=== PATIENT | male | born 1980 | race Caucasian/White ===

== ENCOUNTER 2017-12-19 15:52 | Inpatient (IN) | payer OTHER ==
[~2017-12-19] VITALS: Ht 165.1 cm; Wt 78.0 kg
[2017-12-19] MEDS ORDERED: HTN (16:15)
[2017-12-19] MEDS ORDERED: GERD (16:16)
[2017-12-19 16:21] LABS: ABSOLUTE BASOPHILS 0.1 thou/uL (0.0-0.2); ABSOLUTE EOSINOPHILS 0.1 thou/uL (0.0-0.7); ABSOLUTE LYMPHOCYTES 2.5 thou/uL (0.8-5.3); ABSOLUTE MONOCYTES 0.5 thou/uL (0.0-1.2); ABSOLUTE NEUTROPHILS 5.9 thou/uL (1.6-8.1); BASOPHILS 0.7 %; EOSINOPHILS 1.4 %; HEMATOCRIT 49.8 % (42.0-52.0); HEMOGLOBIN 17.2 gm/dL (14.0-18.0); LYMPHOCYTES 27.4 %; MCH 36.6 pg (26.0-34.0); MCHC 34.6 g/dL (28.0-37.0); MCV 105.8 fL (80.0-100.0); MPV 8.1 fl. (7.2-11.1); NUCLEATED RBCS 0 /100WBC; PLATELET COUNT* 262 thou/uL (150-400); POLYS 64.5 %; RBC 4.71 mil/uL (4.50-6.00); RDW-CV 13.4 % (10.5-14.5); WBC 9.1 thou/uL (4.0-11.0)
[2017-12-19 16:32] LABS: CALCIUM 8.3 mg/dL (8.5-10.1); CREATININE 1.1 mg/dL (0.6-1.3)
[2017-12-19 16:37] LABS: ALBUMIN 3.7 g/dL (3.4-5.0); TOTAL BILIRUBIN 0.5 mg/dL (<0.1-1.0); TOTAL PROTEIN 7.5 g/dL (6.4-8.2)
[2017-12-19] MEDS ORDERED: DEPO-TESTO200 MG/1 M IM (16:38)
[2017-12-19 16:54] LABS: URINE BILIRUBIN NEGATIVE (Negative); URINE BLOOD NEGATIVE (Negative); URINE CLARITY CLEAR; URINE COLOR YELLOW; URINE GLUCOSE-RANDOM NEGATIVE (Negative); URINE KETONES NEGATIVE (Negative); URINE LEUKOCYTES 1+ (Negative); URINE NITRITE NEGATIVE (Negative); URINE PROTEIN 1+ (Negative); URINE UROBILINOGEN 0.2 E.U./dl (0.2-1.0)
[2017-12-19 17:03] LABS: SQUAMOUS 0-3 Few /LPF (0-3)
[2017-12-19 17:04] LABS: BACTERIA None Seen /HPF (None Seen); CASTS None Seen /LPF (None Seen); CRYSTALS None Seen /LPF (None Seen); URINE RBC None Seen /HPF (0-2); URINE WBC 6-15 Few /HPF (0-5)
[2017-12-19 17:29] LABS: AMP/METHAMP Negative (Negative); BARBITURATES Negative (Negative); BENZODIAZEPINES Negative (Negative); COCAINE Negative (Negative); METHADONE Negative (Negative); OPIATES POSITIVE (Negative); PCP Negative (Negative); THC Negative (Negative)
[2017-12-19 19:40] VITALS: BP 193/130
[2017-12-19] MEDS ORDERED: INDERAL80 MG PO (20:02)
[2017-12-19] MEDS ORDERED: PROTONIX40 M1 PO (20:03)
[2017-12-19] MEDS ORDERED: LIPITOR 20 MG T20 M1 PO (20:03)
[2017-12-19] MEDS ORDERED: ASPIRIN325 PO (20:03)
[2017-12-19 20:16] VITALS: BP 181/104
[2017-12-20] VITALS (10 sets, daily range): BP systolic 105–186; BP diastolic 51–116
--- NOTE | 2017-12-20 02:57 | NUR ---
ASSUMED CARE OF PT AT 1950. PT IS ALERT AND ORIENTED. BLOOD PRESSURE HIGH. PT RECIEVED HYDRALAZINE IV AND CLONIDINE PATCH. PT REPORTS SEVERE PAIN IN ABDOMAN. PT GETTING MORPHINE FOR PAIN. PT IS NPO. PT IS SINUS RYTHM ON THE TELEMETRY. PT IS RESTING COMFORTABLY IN BED. RESPIRATIONS ARE EVEN AND NONLABORED. WILL CONTINUE TO MONITOR PT.
[2017-12-20 05:21] LABS: ABSOLUTE EOSINOPHILS 0.1 thou/uL (0.0-0.7); ABSOLUTE MONOCYTES 0.5 thou/uL (0.0-1.2); ABSOLUTE NEUTROPHILS 5.8 thou/uL (1.6-8.1); BASOPHILS 0.2 %; EOSINOPHILS 1.6 %; HEMATOCRIT 47.2 % (42.0-52.0); HEMOGLOBIN 16.4 gm/dL (14.0-18.0); MCH 36.7 pg (26.0-34.0); MCHC 34.8 g/dL (28.0-37.0); MCV 105.6 fL (80.0-100.0); MONOCYTES 6.3 %; MPV 8.4 fl. (7.2-11.1); NUCLEATED RBCS 0 /100WBC; PLATELET COUNT* 208 thou/uL (150-400); POLYS 67.9 %; RBC 4.46 mil/uL (4.50-6.00); RDW-CV 13.4 % (10.5-14.5); WBC 8.5 thou/uL (4.0-11.0)
[2017-12-20 05:59] LABS: CALCIUM 7.6 mg/dL (8.5-10.1); CREATININE 0.8 mg/dL (0.6-1.3)
[2017-12-20 06:22] LABS: POTASSIUM 2.9 mmol/L (3.5-5.1)
--- NOTE | 2017-12-20 10:17 | EKG ---
[place] [address] ELECTROCARDIOGRAM REPORT Name: JAMAL GUTIERREZ Room: [address] ADM IN ..#: [id number] Admission: 12/19/17 Attend Phys: Jose Lam MD Discharge: Date of : 82 Report #: [id number] THIS REPORT FOR: //name// [facility] ED Test Date: 2017-12-19 Test Time: 16:51:02 Pat Name: JAMAL GUTIERREZ Department: Room: [facility] Gender: Injector Assembler: Anupama LANDRY : 1980 Requested By: Gala Selby Order Number: [id number] MD: Jerald Reina Measurements Intervals [place] Rate: 68 P: 6 TX: 141 QRS: -23 QRSD: 83 T: 4 QT: 442 QTc: 471 Interpretive Statements Sinus rhythm Borderline left axis deviation No previous ECG available for comparison Electronically Signed On 12-20-2017 10:17:12 CDT by Jerald Reina [email or web address] <ELECTRONICALLY SIGNED> By: Jerald Reina MD, [facility] 12/20/17 1017 50 50 Jerald Reina MD, FACC /EPI
--- NOTE | 2017-12-20 11:46 | NUR ---
ASSUMED CARE OF PT AT 0730. PT LYING IN BED. PT A&0X4, COMPLAINS OF PAIN TO ABDOMEN-TREATED WITH PRN MORPHINE WITH COMPLETE RELIEF. PT TRACING SR ON THE LICENSED CLINICAL SOCIAL WORKER. ON RA SAT UPPER 90'S, DENIES ANY SHORTNESS OF BREATH. PT UP AD CRISTINA IN ROOM. IVF. CIWA COMPLETED X6HSIUT. REFER TO CHARTING. PT GOAL FOR TODAY IS GI CONSULT, REPLACE POTASSIUM PER ELECTROLYTE PROTOCOL, MONITOR FOR WITHDRAWALS AND PAIN MGMT, AM ASSESSMENT CHARTED. MEDICATIONS PER MAY. PT REPOSITIONS SELF. HOURLY ROUNDING OBSERVED. BED IN LOW POSITION. CALL LIGHT WITHIN REACH. WILL CONTINUE PLAN OF CARE.
--- NOTE | 2017-12-20 15:44 | NUR ---
Pt sound asleep when CM went to assess, will f/u later
--- NOTE | 2017-12-20 18:43 | NUR ---
NO ACUTE CHANGES THROUGHOUT SHIFT. REFER TO CHARTING. GI SEEN PT. OK TO ADVANCE TO CLEAR LIQUIDS- PT TOLERATED CLEAR LIQUIDS AT DINNER. PT COMPLAINED OF PAIN THROUGHOUT SHIFT-TREATED WITH PRN MORPHINE WITH RELIEF. BLOOD PRESSURE CONTINUES TO BE ELEVATED- DR BIRCH NOTIFIED. ORDERS RECEIVED TO RE START PROPRANOLOL- BLOOD PRESSURE BETTER THIS EVENING- 140'S/80'S. AT BEDSIDE AND UPDATED ON CURRENT PLAN OF CARE. POTASSIUM CONTINUES TO BE REPLACED PER ELECTROLYTE PROTOCOL- REFER TO EMAR. HAYNES COMPLETED Q5H- PT SCORING 0. PT TRACING SR ON THE OVERNIGHT BABYSITTER. ON RA SAT UPPER 90'S. DENIES ANY SHORTNESS OF BREATH. PT UP AD CRISTINA IN ROOM. IVF. MEDICATIONS PER MAY. PT REPOSITIONS SELF. HOURLY ROUNDING OBSERVED. BED IN LOW POSITION. CALL LIGHT WITHIN REACH. WILL CONTINUE PLAN OF CARE.
[2017-12-21 00:31] VITALS: BP 145/103
[2017-12-21 04:37] VITALS: BP 149/101
[2017-12-21 05:00] LABS: ABSOLUTE EOSINOPHILS 0.1 thou/uL (0.0-0.7); ABSOLUTE LYMPHOCYTES 1.8 thou/uL (0.8-5.3); ABSOLUTE MONOCYTES 0.5 thou/uL (0.0-1.2); ABSOLUTE NEUTROPHILS 4.7 thou/uL (1.6-8.1); BASOPHILS 0.5 %; HEMATOCRIT 46.2 % (42.0-52.0); HEMOGLOBIN 15.9 gm/dL (14.0-18.0); LYMPHOCYTES 25.1 %; MCH 36.6 pg (26.0-34.0); MCHC 34.4 g/dL (28.0-37.0); MCV 106.6 fL (80.0-100.0); MONOCYTES 7.1 %; MPV 8.9 fl. (7.2-11.1); NUCLEATED RBCS 0 /100WBC; PLATELET COUNT* 194 thou/uL (150-400); POLYS 65.3 %; RBC 4.33 mil/uL (4.50-6.00); RDW-CV 13.5 % (10.5-14.5); WBC 7.1 thou/uL (4.0-11.0)
[2017-12-21 05:17] LABS: ALBUMIN 3.1 g/dL (3.4-5.0); CALCIUM 7.8 mg/dL (8.5-10.1); CREATININE 0.7 mg/dL (0.6-1.3); POTASSIUM 3.4 mmol/L (3.5-5.1); TOTAL BILIRUBIN 0.7 mg/dL (<0.1-1.0); TOTAL PROTEIN 6.7 g/dL (6.4-8.2)
--- NOTE | 2017-12-21 07:04 | NUR ---
RECEIVED REPORT AND ASSUMED CARE AT 1900. BP ELEVATED, OTHERWISE VSS. CARDIAC MONITORING IN PLACE. PT REPORTED PAIN, PRN MEDICATION ADMIN PER ORDERS. DISCUSSED PLAN OF CARE WITH PT,VERBALIZED UNDERSTANDING. PT UP AD CRISTINA IN ROOM, ON RA. HOURY ROUNDING COMPLETED ALL NEEDS MET. NURSING WILL CONTINUE TO M MONITOR
[2017-12-21 08:00] VITALS: BP 155/100
[2017-12-21 10:50] VITALS: BP 132/91
[2017-12-21 12:08] VITALS: BP 131/93
--- NOTE | 2017-12-21 13:00 | NUR ---
SAW PT.AND . HE WAS ALERT AND ORIENTED. CHILDREN AT BEDSIDE. HE SAID HE LIVES WITH HIS FAMILY AT A HOTEL IN [place]. THAT IS THE CHEAPIST WAY FOR THEM TO LIVE RIGHT NOW. HE USES NO DME AND NO HX OF HH. HE SAID HE MAY TRY TO QUIT DRINKING ON HIS OWN. DID ACCEPT PACKET FOR THE UNINSURED AND PACKET FOR ALCOHOL DEPENDENCE. HOPES TO GO HOME SOON.
--- NOTE | 2017-12-21 16:03 | NUR ---
ASSUMED CARE OF PT AT 0730. PT RESTING IN BED. PT A&0X4, WANTS SOMETHING TO EAT. EDUCATION GIVEN REGARDING LETTING STOMACH REST WITH PANCREATITIS. PT ON CLEAR LIQUIDS AND TOLERATING WELL. COMPLAINS OF PAIN TO ABDOMEN TREATED WITH PRN MORPHINE WITH RELIEF. AND KIDS AT BEDSIDE. PT TRACING SR ON THE INSULATION BLANKET MAKER. ON RA SAT UPPER 90'S. DENIES ANY SHORTNESS OF BREATH. PT GOAL FOR TODAY IS PAIN MGMT, MONITOR CIWAS AND MONITOR BLOOD PRESSURE CLOSELY. DR DUFFY HERE TO SEE PT AND ORDERS RECEIVED TO CONTINUE WITH CLEAR LIQUIDS AND PROPRANOLOL INCREASED TO 120 MG PO BID. CIWA 0. POTASSIUM BEING REPLACED PER ELECTROLYTE PROTOCOL. AM ASSESSMENT CHARTED. MEDICATIONS PER MAY. PT REPOSITIONS SELF. HOURLY ROUNDING OBSERVED. BED IN LOW POSITION. CALL LIGHT WITHIN REACH. WILL CONTINUE PLAN OF CARE.
[2017-12-21 16:19] VITALS: BP 143/90
--- NOTE | 2017-12-21 17:30 | NUR ---
PT CALLED OUT REQUESTING NURSE. THIS RN WENT INTO ROOM AND PT FULLY CLOTHED, DISCONTINUED OWN IV AND TOOK CHOCOLATE TEMPERER OFF, STATING "I NEED TO GO, RENT IS DUE SATURDAY, WE HAVE TO FIX OUR TRUCK AND I JUST CANT BE HERE ANYMORE, IM SORRY". EDUCATION GIVEN REGARDING LEAVING AGAINST MEDICAL ADVICE-RISKS EXPLAINED. PT COMMUNICATES UNDERSTANDING, SIGNED AMA FORM AND LEFT WITH AND KIDS WITH ALL BELONGINGS.
--- NOTE | 2017-12-23 11:22 | CON ---
[address] [address] CONSULTATION Name: JAMAL GUTIERREZ Room: [address] IN .R.#: [id number] Admission: 12/19/17 Attend Phys: Jose Lam MD Discharge: 12/21/17 Date of : 82 Report #: [id number] THIS REPORT FOR: //name// CC: Jose Lam [facility] physician/PCP HISTORY OF PRESENT ILLNESS: This is a pleasant 37-year-old male with history of alcohol abuse and 2 prior episodes of pancreatitis, last one 6 months back, was presenting with recurrent abdominal pain. The patient reports the abdominal pain started yesterday morning. The pain is severe, located in the epigastrium, nonradiating, associated with nausea and vomiting. The patient reports several episodes of nonbloody and nonbilious vomiting prior to presenting to the hospital. He denies any fevers or chills. Denies any diarrhea or hematemesis. The episode of pancreatitis is similar to the last one he had 6 months back. The patient quit alcohol 6 months back, but day before yesterday had 2 pints of hard liquor. Prior to quitting alcohol, the patient reports drinking 1 pint of hard liquor every day. Additionally, the patient smokes 1 pack of cigarettes per day. The patient had cholecystectomy in 2005. PAST MEDICAL HISTORY: The patient has past medical history of recurrent pancreatitis and hypertension. PAST SURGICAL HISTORY: The patient had cholecystectomy 6 years back and prior to that had appendectomy. SOCIAL HISTORY: As mentioned above, the patient smokes 1 pack per day and used to drink 1 pint of hard liquor per day. He denies any recreational drug use. FAMILY HISTORY: The patient's mother was diagnosed with colon cancer at 54 and the patient's maternal grandfather was diagnosed with colon cancer. REVIEW OF SYSTEMS: A comprehensive 14-point review of systems is negative except what was mentioned here. PHYSICAL EXAMINATION: VITAL SIGNS: Temperature 36.7, pulse rate 83, blood pressure 148/99, respirations 20. GENERAL: The patient is alert, awake, oriented times 3, appears to be in mild distress. HEENT: Mucous membranes are moist. NECK: There is no congestion. LUNGS: Clear to auscultation bilaterally. There is no supraclavicular lymphadenopathy. CARDIOVASCULAR: Rate and rhythm regular, S1, S2 present. ABDOMEN: Soft. There is tenderness in the epigastric region. No guarding or rigidity. EXTREMITIES: Warm, well perfused[place] [address] CONSULTATION Name: JAMAL GUTIERREZ Anupama Room: [address]#: [id number] Admission: 12/19/17 Attend Phys: Jose Lam MD Discharge: 12/21/17 Date of : 82 Report #: [id number] SKIN: Warm and dry. There is no focal neurological deficit. LABORATORY DATA: Hemoglobin 16.4, hematocrit 47.2, WBC count 8.5, MCV 105. Sodium 139, potassium 2.9, chloride 104, other bicarbonate 25, BUN 11, creatinine 0.8, lipase 2862. Urine opiate screen positive. IMAGING: Abdomen and pelvis CT demonstrates acute pancreatitis with fluid and inflammation surrounding the majority of pancreas. No pancreatic pseudocyst identified. No pancreatic necrosis detected. ASSESSMENT AND PLAN: This is a very pleasant 37-year-old male with history of alcohol abuse, presenting with acute episode of recurrent pancreatitis. The patient has had 3 episodes so far of recurrent acute pancreatitis. This episode is mild without any local complications. 1. Acute pancreatitis, mild, without local complications. 2. Elevated MCV. 3. Family history of colon cancer. 4. I would recommend conservative management for the patient's pancreatitis. I would continue IV fluids and would place the patient on clear liquid diet for dinner. If he is able to tolerate it, we can advance it as directed. 5. The macrocytosis is probably related to his chronic alcohol abuse and subsequent folate deficiency. I would check B12 and folate levels and replace them as necessary. 6. Family history of colon cancer. I would recommend start screening colonoscopy starting at the age 45. The patient apparently had colonoscopy performed at [facility] a few years back and the polyp was removed. I would like to get records to further tailor his screening colonoscopy recommendations. Smoking cessation and alcohol cessation strongly advised, as both are associated with recurrent acute pancreatitis, chronic pancreatitis and pancreatic cancer. <ELECTRONICALLY SIGNED> By: Luis Watson MD 12/23/17 1122 1054 [id number] Watson MD /nt
--- NOTE | 2018-01-03 13:24 | NUR ---
DR IN TO ROUND AND DISCHARGE ORDERS WERE WRITTEN. PATIENT GIVEN DISCHARGE AND FOLLOW UP INSTRUCTIONS. HOME PRESCRIPTIONS GIVEN ALONG WITH CARE NOTES. SALINE LOCK AND TELE MONITOR DISCONTINUED. PATIENT DISCHARGED TO HOME WITH BELONGINGS.
--- NOTE | 2018-01-03 13:28 | NUR ---
ASSUMED CARE OF PATIENT THIS AM AT 0730. PATIENT IS ALERT AND ORIENTED. HE DENIES PAIN N/V THIS AM. PATIENT REQUESTED REGULAR DIET. DIET ADVANCED. PATIENT TOLERATED REGULAR DIET WELL. HOWEVER PATIENT C/O SOME BLADDER SPASMS AROUND 1130. PATIENT MEDICATED X 1 WITH HIS VERBALIZED RELIEF. TELE SHOWS SR THIS AM. PATIENT VOIDING WELL CARLOS COLORED URINE. URIND SPECIMEN SENT TO LAB.
== END 2017-12-21 17:35 | disposition left against medical advice (07) | DRG 439 ==
LOC: M.ERS 15:52 → M.TBA-ER 18:48 → M.2W 19:01
PROVIDERS: Nurse Practitioner Family; ADMIT Internal Medicine
DX: K85.20 Alcohol induced acute pancreatitis without necrosis or infection (principal); R65.10 Systemic inflammatory response syndrome (SIRS) of non-infectious origin without acute organ dysfunction; I10 Essential (primary) hypertension; K21.9 Gastro-esophageal reflux disease without esophagitis; F10.20 Alcohol dependence, uncomplicated; E87.6 Hypokalemia; F17.210 Nicotine dependence, cigarettes, uncomplicated; Z90.49 Acquired absence of other specified parts of digestive tract; Z71.6 Tobacco abuse counseling; Z79.82 Long term (current) use of aspirin; Z23 Encounter for immunization; Z79.899 Other long term (current) drug therapy; Z80.0 Family history of malignant neoplasm of digestive organs

== ENCOUNTER 2017-12-31 01:46 | Inpatient (IN) | payer OTHER ==
[2017-12-31] VITALS (7 sets, daily range): BP systolic 127–188; BP diastolic 82–99
[~2017-12-31] VITALS: Ht 165.1 cm; Wt 83.7 kg
[~2017-12-31 01:46] MED LIST: ASPIRIN325 PO; DEPO-TESTO200 MG/1 M IM; GERD; HTN; INDERAL80 MG PO; LIPITOR 20 MG T20 M1 PO; PROTONIX40 M1 PO
[2017-12-31 02:11] LABS: ABSOLUTE BASOPHILS 0.1 thou/uL (0.0-0.2); ABSOLUTE EOSINOPHILS 0.2 thou/uL (0.0-0.7); ABSOLUTE LYMPHOCYTES 3.6 thou/uL (0.8-5.3); ABSOLUTE MONOCYTES 0.8 thou/uL (0.0-1.2); ABSOLUTE NEUTROPHILS 3.3 thou/uL (1.6-8.1); BASOPHILS 0.8 %; EOSINOPHILS 2.8 %; HEMATOCRIT 48.6 % (42.0-52.0); HEMOGLOBIN 16.6 gm/dL (14.0-18.0); LYMPHOCYTES 45.4 %; MCH 36.1 pg (26.0-34.0); MCV 105.9 fL (80.0-100.0); MONOCYTES 9.7 %; MPV 7.9 fl. (7.2-11.1); NUCLEATED RBCS 0 /100WBC; PLATELET COUNT* 347 thou/uL (150-400); POLYS 41.3 %; RBC 4.59 mil/uL (4.50-6.00); WBC 7.9 thou/uL (4.0-11.0)
[2017-12-31 02:21] LABS: CALCIUM 9.3 mg/dL (8.5-10.1); POTASSIUM 3.8 mmol/L (3.5-5.1)
[2017-12-31 02:25] LABS: ALBUMIN 3.8 g/dL (3.4-5.0); TOTAL BILIRUBIN 0.2 mg/dL (<0.1-1.0); TOTAL PROTEIN 7.8 g/dL (6.4-8.2)
--- NOTE | 2017-12-31 05:09 | NUR ---
PT NOT ABLE TO STAY AWAKE LONG ENOUGH TO ANSWER QUESTIONS; RECENTLY ADMITTED ON 12/19/17, MOST ADMIT INFO OBTAINED FROM PREVIOUS VISIT DOCUMENTATION.
--- NOTE | 2017-12-31 06:42 | NUR ---
PT WAS ADMITTED TO ROOM 223 DURING THIS SHIFT; VSS, ORIENTED X4 BUT DROWSY, DENIES PAIN, SMELLS OF ALCOHOL. HE IS ABLE TO COMMUNICATE HIS NEEDS TO STAFF EFFECTIVELY. CURRENT PAIN MEDICATION REGIMEN HAS BEEN ADEQUATE FOR CONTROLLING HIS PAIN UP TO THIS TIME. CLEAR LIQUID DIET MAINTAINED.
--- NOTE | 2017-12-31 08:45 | NUR ---
ASSUMED PT. CARE AND RECEIVED REPORT AT 0730. PT SLEEPING, BUT AROUSABLE AND ANSWERS PRESENTS APPROPRIATELY. ON RA @ 98%. FULL ASSESSMENT COMPLETED, REFER TO CHARTING. PT. DENIES PAIN MED. NEED AT THIS TIME. CALL LIGHT IN REACH, WILL CONTINUE WITH PLAN OF CARE.
--- NOTE | 2017-12-31 13:32 | NUR ---
PT. STATING HE WANTS TO LEAVE, NEEDS TO GO TO WORK. PT. ENCOURAGED TO STAY FOR TREATMENT AND SEE UROLOGIST. DISCUSSED PAIN MANAGEMENT, PT. DENIES NEEDING PAIN MED AT THIS TIME. DISCUSSED WITHDRAW, OFFER MED FOR SYMPTOM AND PT. ACCEPTED. FAMILY AT BEDSIDE. PT. AGREEING TO STAY AT THIS TIME.
[2018-01-01] VITALS (8 sets, daily range): BP systolic 132–160; BP diastolic 79–103
--- NOTE | 2018-01-01 04:59 | NUR ---
ASSUMED CARE OF PT AFTER REPORT AT 1930. PT A&OX4. VSS. PHYSICAL ASSESEMENT COMPLETED AND CHARTED. PT ON RA WITH 97% O2 SAT. PT TRACING SR ON TELE. PT UP ADLIB. INSTRUCTED ON NPO POST MIDNIGHT FOR POSSIBLE STENT INSERTION IN THE URETER. COMMUNICATES UNDERSTANDING. PT C/O OF ABDOMINAL PAIN WITH PAIN SCALE OF 6/10-PAIN MEDS GIVEN PER MAR WITH PARTIAL RELIEF. PT RESTED WELL ON BED. HS REST & SAFETY GOALS ACHIEVED. CALL LIGHT WITHIN REACH. BED IN LOW POSITION.
--- NOTE | 2018-01-01 10:48 | NUR ---
PT RETURN FROM PROCEDURE AT APPROX 0945. PT IS ALERT, ORIENTED AND VSS ON ROOM AIR. C/O LOWER BACK AND URETHRAL PAIN- MEDICATED PER EMAR. PT DOES HAVE SOME BLOOD IN URINE- EDUCATED TO REPORT TO NURSE IF BECOMES DARK RED. AT BEDSIDE. EDUCATED ON SAFETY AND PLAN OF CARE. PLEASE SEE ASSESSMENT FOR ADDITIONAL INFORMATION. WILL CONTINUE TO MONITOR
--- NOTE | 2018-01-01 14:28 | NUR ---
Pt out of the room when CM went to assess, will f/u later
--- NOTE | 2018-01-01 15:09 | NUR ---
Pt is A&O. Resides in a motel with his and children. Pt was recently hosptialized here earlier this month. Independent and active. No DME. No hx of HH or SNF. Goal is home at nd. Pt had surgery this AM. Following.
--- NOTE | 2018-01-01 17:37 | NUR ---
PT CONTINUES TO C/O EPIGASTRIC AND URETHRAL PAIN- MEDICATED PER EMAR. TELE TRACKING SINUS TACH RATES UP TO 130'S WITH ACTIVITY, RETURNS TO BASELINE 80'S WITH REST. ASSESSMENT OTHERWISE REMAINS UNCHANGED. WILL CONTINUE TO MONITOR
[2018-01-02] VITALS: BP 144/87
[2018-01-02 04:00] VITALS: BP 132/83
--- NOTE | 2018-01-02 04:14 | NUR ---
ASSUMED PT CARE AT 1930. ASSESSMENT COMPLETED CHARTED. PT RESTING IN BED COMFORTABLY ALL NIGHT, GAVE PAIN MEDICATION X2 SO FAR THIS SHIFT FOR "STOMACH PAIN". PT UP AD CRISTINA, PT AND KIDS LEFT AROUND 9PM. IVF INFUSING PER P.O. ABLE TO MAKE NEEDS KNOWN. WILL CONTINUE TO MONITOR.
[2018-01-02 08:20] VITALS: BP 135/87
[2018-01-02 11:35] VITALS: BP 131/90
--- NOTE | 2018-01-02 12:27 | NUR ---
CM spoke with Pt regarding need for stent removal post dc. CM asked nurse to speak with Urology, regarding timeline for removal and who will do the removal. CM provided Pt with [facility] substance abuse tx info, Pt voiced desire to receive treatment. Following.
[2018-01-02 16:21] VITALS: BP 153/86
--- NOTE | 2018-01-02 16:31 | NUR ---
PATIENT REMAINED ALERT AND ORIENTED X'S 4. VITAL SIGNS AND SPO2 STABLE. IV CLEAN, FLUIDS INFUSING. PAIN WELL CONTROLLED WITH PAIN MEDS. SHOWED NO SIGNS/SYMPTOMS OF ALCOHOL WITHDRAWL. TOLERATED DIET, NO NAUSEA AND VOMITING. PASSED BM AND VOIDED WITHOUT ISSUE. COMPLETED HOURLY ROUNDING, CALL LIGHT WITHIN REACH. WILL CONTINUE TO MONITOR.
[2018-01-02 20:00] VITALS: BP 169/113
[2018-01-03 01:00] VITALS: BP 143/74
--- NOTE | 2018-01-03 01:27 | NUR ---
ASSUMED CARE OF PATIENT AT 1900. VSS, AFEBRILE. C/O STOMACH PAIN FROM KIDNEY STONES, SOME RELIEF, ABLE TO SLEEP OFF AND ON THROUGH THE NIGHT. CALLS OUT APPROPRIATELY. URINE IS RED TINGED IN COLOR WITH STRAINER IN PLACE. NO OTHER CONCERNS AT THIS TIME. WILL CONTINUE TO MONITOR.
[2018-01-03 04:00] VITALS: BP 147/95
[2018-01-03 08:00] VITALS: BP 152/98
[2018-01-03 09:36] LABS: CALCIUM 8.6 mg/dL (8.5-10.1); CREATININE 0.9 mg/dL (0.6-1.3); POTASSIUM 3.3 mmol/L (3.5-5.1)
--- NOTE | 2018-01-03 10:27 | NUR ---
ASSUMED CARE OF PATIENT THIS AM. PATIENT IS ALERT AND ORIENTED X 4. HE STATES THAT PAIN IS UNDER CONTROL AND HE HAS NO NEED FOR PAIN MEDICATION SO FAR THIS AM. PATIENT IS UP IN THE HALLS INDEPENDENTLY. TELE SHOWS NSR. PATIENT STATES IS VOIDING WITHOUT DIFFICULTY. PATIENT IS EGAR TO BE DISCHARGED TODAY. WILL CONTINUE TO MONITOR.
--- NOTE | 2018-01-03 10:36 | NUR ---
GROUP HOME SUPERVISOR SPOKE TO MONROE IN SCHEDULING WITH [facility] TO CONFIRM PATIENT'S APPOINTMENT WITH DR. LETY BERRY. MONROE INFORMS THAT THE PATIENT HAS AN APPOINTMENT SET FOR SATURDAY (01/09/2018) AT THE [facility] OFFICE AT 1520. D/C MOTOCROSS RACER INFORMED THE RN IN-CHARGE OF THE PATIENT PF THIS INFO. RN IN AGREEMENT. CM WILL REMAIN AVIALABLE TO ASSIST AND FOLLOW NEEDED. [facility] [address] [place] [address]
[2018-01-03 10:43] VITALS: BP 152/98
[2018-01-03] MEDS ORDERED: FLOMAX0.4 MG PO (11:08)
[2018-01-03] MEDS ORDERED: PRENATAL PO (11:10)
[2018-01-03] MEDS ORDERED: CELEXA20 MG PO (11:12)
[2018-01-03 11:50] LABS: URINE BILIRUBIN NEGATIVE (Negative); URINE BLOOD 3+ (Negative); URINE CLARITY SL CLOUDY; URINE COLOR STRAW; URINE GLUCOSE-RANDOM NEGATIVE (Negative); URINE KETONES NEGATIVE (Negative); URINE NITRITE-REFLEX NEGATIVE (Negative); URINE PROTEIN TRACE (Negative); URINE SPECIFIC GRAVITY 1.015 (1.005-1.030); URINE UROBILINOGEN 0.2 E.U./dl (0.2-1.0)
[2018-01-03 11:54] LABS: URINE LEUKOCYTES-REFLEX 2+ (Negative)
[2018-01-03 11:58] LABS: BACTERIA-REFLEX 1-9 Few /HPF (None Seen); MUCUS 0-3 Light strn/LPF (None Seen); SQUAMOUS 0-3 Few /LPF (0-3); URINE RBC >20 Many /HPF (0-2); URINE WBC-REFLEX 6-15 Few /HPF (0-5)
[2018-01-03 11:59] VITALS: BP 155/104
[2018-01-03 11:59] LABS: CASTS None Seen /LPF (None Seen); CRYSTALS None Seen /LPF (None Seen)
[2018-01-03] MEDS ORDERED: LEVSIN0.125 MG SUBLING (12:26)
[2018-01-03] MEDS ORDERED: CIPRO500 MG PO (12:27)
[2018-01-03 12:30] VITALS: BP 152/98
[2018-01-04] MEDS ORDERED: NORCO 5-325 TA1 EACH PO (15:09)
[2018-01-10 16:08] LABS: STONE CA OXALATE DIHYDRATE 70 % (()); STONE CA OXALATE MONOHYDRATE 10 % (()); STONE CALCIUM PHOSPHATE 20 % (()); STONE COLOR Tan (()); STONE COMMENT Note: (()); STONE WEIGHT 1.1 mg (())
--- NOTE | 2018-01-14 15:21 | OP ---
[address] [address] OPERATIVE REPORT Name: JAMAL GTUIERREZ Room: [address] IN M.R.#: [id number] Admission: 12/31/17 Attend Phys: Jose Lam MD Discharge: 01/03/18 Date of : 82 Report #: [id number] THIS REPORT FOR: //name// CC: [facility] Jose Lam [facility] physician/PCP DATE OF SERVICE: 01/01/2018 PREOPERATIVE DIAGNOSIS: Left ureteral stone. POSTOPERATIVE DIAGNOSIS: Left ureteral stone. PROCEDURE PERFORMED: Cystoscopy, left retrograde pyelogram, left ureteroscopy with laser fragmentation of stone, basketing and JJ stent placement. SURGEON: Tobias Reese MD COMPLICATIONS: None. DRAINS: Include a 6 x 26 cm stent, left ureter. ANESTHESIA: General. COMPLICATIONS: None. BLOOD LOSS: None. SPECIMENS: Stone fragment to pathology. STATEMENT OF MEDICAL INDICATION: This is a 37-year-old purported male who actually has female genitalia, who has had multiple prior stones, now has a 6 mm stone with readmission for left-sided flank pain. CT scan shows a 6 mm left proximal ureteral stone. The patient has been apprised the options of management and has elected to proceed with ureteroscopy. The patient understands the procedure, risks, potential complications including but not limited to bleeding, infection, scar tissue formation, injury to the urinary tract or adjacent structure, need for further procedures and wished to proceed. DESCRIPTION OF PROCEDURE: Following informed consent, the patient was taken to the Operating Room and placed under general anesthesia, he was prepped and draped in sterile fashion in dorsal lithotomy position. The patient has entirely female genitalia with a clitoris, vagina and clearly not a genetic male. Cystoscopy was carried out. The bladder was normal. Left retrograde pyelogram revealed a filling defect in the left proximal ureter. A ureteral access sheath was placed. Flexible ureteroscope [place] [address] OPERATIVE REPORT Name: JAMAL GUTIERREZ Room: [address]#: [id number] Admission: 12/31/17 Attend Phys: Jose Lam MD Discharge: 01/03/18 Date of : 82 Report #: [id number] the stone, which was visualized and fragmented using the holmium laser fiber into multiple pieces. The pieces were all small. A single piece was engaged in the basket and removed for stone analysis. Following this, then a wire was placed back up into the kidney. Cystoscope backloaded over the wire and a 6 x 26 cm stent was placed in the left ureter. The bladder was drained. The patient given a Uro-Jet per urethra, Toradol injection, B and O suppository, returned to Recovery Room in satisfactory condition. Postop plan will be return in the next 7-10 days for cystoscopy and stent removal. <ELECTRONICALLY SIGNED> By: Tobias Reese MD 01/14/18 1521 0851 [id number] Art Reese MD /nt
== END 2018-01-03 13:08 | disposition home or self-care (01) | DRG 659 ==
LOC: M.ERS 01:46 → M.2W 03:36 → M.TBA-ER 03:36 → M.2W 04:17
PROVIDERS: Family Medicine; Personal Emergency Response Attendant; ADMIT Internal Medicine
PROC: 0T778DZ Dilation of Left Ureter with Intraluminal Device, Via Natural or Artificial Opening Endoscopic (ICD-10-PCS; principal; 2018-01-01)
PROC: BT1F1ZZ Fluoroscopy of Left Kidney, Ureter and Bladder using Low Osmolar Contrast (ICD-10-PCS; principal; 2018-01-01)
PROC: 0TC78ZZ Extirpation of Matter from Left Ureter, Via Natural or Artificial Opening Endoscopic (ICD-10-PCS; principal; 2018-01-01)
DX: N13.2 Hydronephrosis with renal and ureteral calculous obstruction (principal); K85.20 Alcohol induced acute pancreatitis without necrosis or infection; I10 Essential (primary) hypertension; K21.9 Gastro-esophageal reflux disease without esophagitis; F17.210 Nicotine dependence, cigarettes, uncomplicated; F12.90 Cannabis use, unspecified, uncomplicated; F10.10 Alcohol abuse, uncomplicated; F41.9 Anxiety disorder, unspecified; Z79.82 Long term (current) use of aspirin; Z79.899 Other long term (current) drug therapy; Z28.21 Immunization not carried out because of patient refusal

== ENCOUNTER 2018-01-04 14:45 | Emergency (ER) | payer OTHER ==
[~2018-01-04] VITALS: Ht 165.1 cm; Wt 83.9 kg
[~2018-01-04 14:45] MED LIST changes: +CELEXA20 MG PO; +CIPRO500 MG PO; +FLOMAX0.4 MG PO; +LEVSIN0.125 MG SUBLING; +PRENATAL PO
[2018-01-04 14:52] VITALS: BP 167/106
[2018-01-04] MEDS ORDERED: NORCO 5-325 TA1 EACH PO (15:09)
== END 2018-01-04 15:16 | disposition home or self-care (01) ==
LOC: M.ERS 14:45
DX: N20.0 Calculus of kidney (principal); I10 Essential (primary) hypertension; K21.9 Gastro-esophageal reflux disease without esophagitis; K58.9 Irritable bowel syndrome, unspecified; F17.210 Nicotine dependence, cigarettes, uncomplicated

== ENCOUNTER 2018-01-10 04:09 | Emergency (ER) | payer OTHER ==
[~2018-01-10] VITALS: Ht 165.1 cm; Wt 81.6 kg
[~2018-01-10 04:09] MED LIST changes: +NORCO 5-325 TA1 EACH PO
[2018-01-10 04:36] LABS: ABSOLUTE BASOPHILS 0.1 thou/uL (0.0-0.2); ABSOLUTE EOSINOPHILS 0.3 thou/uL (0.0-0.7); ABSOLUTE LYMPHOCYTES 2.5 thou/uL (0.8-5.3); ABSOLUTE MONOCYTES 0.8 thou/uL (0.0-1.2); ABSOLUTE NEUTROPHILS 6.4 thou/uL (1.6-8.1); BASOPHILS 0.6 %; EOSINOPHILS 3.1 %; HEMATOCRIT 47.6 % (42.0-52.0); HEMOGLOBIN 16.3 gm/dL (14.0-18.0); LYMPHOCYTES 25.2 %; MCH 35.8 pg (26.0-34.0); MCHC 34.2 g/dL (28.0-37.0); MCV 104.7 fL (80.0-100.0); MONOCYTES 7.7 %; MPV 7.9 fl. (7.2-11.1); NUCLEATED RBCS 0 /100WBC; PLATELET COUNT* 295 thou/uL (150-400); POLYS 63.4 %; RBC 4.55 mil/uL (4.50-6.00); RDW-CV 12.9 % (10.5-14.5); WBC 10.1 thou/uL (4.0-11.0)
[2018-01-10 04:48] LABS: INR 0.9; PROTIME 9.4 Seconds (9.20-11.50)
[2018-01-10 04:51] LABS: ANION GAP 8 mmol/L (7-16); BUN 14 mg/dL (7-18); CALCIUM 8.7 mg/dL (8.5-10.1); CHLORIDE 107 mmol/L (98-107); CO2 26 mmol/L (21-32); GLUCOSE 129 mg/dL (70-99); POTASSIUM 3.5 mmol/L (3.5-5.1); SODIUM 141 mmol/L (136-145)
[2018-01-10 05:07] LABS: ALBUMIN 3.4 g/dL (3.4-5.0); ALKALINE PHOSPHATASE 89 U/L (46-116); LIPASE 697 U/L (73-393); NT-PRO BRAIN NAT PEPTIDE 137 pg/mL (<300); SGOT 10 U/L (15-37); SGPT 20 U/L (30-65); TOTAL BILIRUBIN 0.2 mg/dL (<0.1-1.0); TOTAL PROTEIN 7.5 g/dL (6.4-8.2); TROPONIN-I LEVEL <0.06 ng/mL (<0.06)
[2018-01-10 05:32] LABS: URINE BILIRUBIN NEGATIVE (Negative); URINE BLOOD 3+ (Negative); URINE CLARITY CLEAR; URINE COLOR YELLOW; URINE GLUCOSE-RANDOM NEGATIVE (Negative); URINE KETONES TRACE (Negative); URINE LEUKOCYTES-REFLEX NEGATIVE (Negative); URINE NITRITE-REFLEX NEGATIVE (Negative); URINE PROTEIN 1+ (Negative); URINE SPECIFIC GRAVITY >= 1.030 (1.005-1.030); URINE UROBILINOGEN 0.2 E.U./dl (0.2-1.0)
[2018-01-10 05:41] LABS: BACTERIA-REFLEX 1-9 Few /HPF (None Seen); CASTS None Seen /LPF (None Seen); CRYSTALS None Seen /LPF (None Seen); MUCUS 4-6 Moderate strn/LPF (None Seen); SQUAMOUS 0-3 Few /LPF (0-3); URINE WBC-REFLEX 0-5 Rare /HPF (0-5)
[2018-01-10 05:46] LABS: AMP/METHAMP Negative (Negative); BARBITURATES Negative (Negative); BENZODIAZEPINES Negative (Negative); METHADONE Negative (Negative); OPIATES POSITIVE (Negative); PCP Negative (Negative); THC Negative (Negative)
[2018-01-10 05:56] LABS: COCAINE Negative (Negative)
[2018-01-10] MEDS ORDERED: NORCO 7.5-3251 EACH PO (06:04)
[2018-01-10 06:15] VITALS: BP 141/93
--- NOTE | 2018-01-10 12:10 | EKG ---
[place] [address] ELECTROCARDIOGRAM REPORT Name: JAMAL GUTIERREZ Room: [facility]#: [id number] Admission: 01/10/18 Attend Phys: Discharge: 01/10/18 Date of : 82 Report #: [id number] THIS REPORT FOR: //name// [facility] ED Test Date: 2018-01-10 Test Time: 04:14:26 Pat Name: JAMAL GUTIERREZ Department: Room: Gender: M Print Producer: MATHEUS : 1980 Requested By: Carly Vanegas Order Number: [id number] MD: Jerald Reina Measurements Intervals [place] Rate: 70 P: 9 MO: 150 QRS: -13 QRSD: 83 T: 12 QT: 406 QTc: 439 Interpretive Statements Sinus rhythm Borderline T wave abnormalities Baseline wander in lead(s) I Compared to ECG 12/19/2017 16:51:02 no change Electronically Signed On 01-10-2018 12:10:49 CDT by Jerald Reina [email or web address] <ELECTRONICALLY SIGNED> By: Jerald Reina MD, [facility] 01/10/18 1210 0414 0414 Jerald Reina MD, [facility] /EPI
== END 2018-01-10 06:15 | disposition home or self-care (01) ==
LOC: M.ERS 04:09
PROVIDERS: Emergency Medicine
DX: K85.90 Acute pancreatitis without necrosis or infection, unspecified (principal); F17.210 Nicotine dependence, cigarettes, uncomplicated; I10 Essential (primary) hypertension; K21.9 Gastro-esophageal reflux disease without esophagitis; K58.9 Irritable bowel syndrome, unspecified; Z87.442 Personal history of urinary calculi

== ENCOUNTER 2018-01-27 02:29 | Inpatient (IN) | payer OTHER ==
[~2018-01-27] VITALS: Ht 165.1 cm; Wt 79.4 kg
[~2018-01-27 02:29] MED LIST changes: +NORCO 7.5-3251 EACH PO
[2018-01-27 02:34] VITALS: BP 185/112
[2018-01-27 03:13] LABS: ABSOLUTE EOSINOPHILS 0.3 thou/uL (0.0-0.7); ABSOLUTE LYMPHOCYTES 2.7 thou/uL (0.8-5.3); ABSOLUTE MONOCYTES 0.7 thou/uL (0.0-1.2); ABSOLUTE NEUTROPHILS 5.3 thou/uL (1.6-8.1); BASOPHILS 0.5 %; EOSINOPHILS 3.5 %; HEMATOCRIT 48.5 % (42.0-52.0); HEMOGLOBIN 16.7 gm/dL (14.0-18.0); LYMPHOCYTES 29.7 %; MCH 35.6 pg (26.0-34.0); MCHC 34.5 g/dL (28.0-37.0); MCV 103.2 fL (80.0-100.0); MONOCYTES 8.1 %; MPV 7.7 fl. (7.2-11.1); NUCLEATED RBCS 0 /100WBC; PLATELET COUNT* 242 thou/uL (150-400); POLYS 58.2 %; RBC 4.71 mil/uL (4.50-6.00); RDW-CV 13.3 % (10.5-14.5); WBC 9.2 thou/uL (4.0-11.0)
[2018-01-27 03:25] LABS: ANION GAP 12 mmol/L (7-16); BUN 13 mg/dL (7-18); CALCIUM 8.5 mg/dL (8.5-10.1); CHLORIDE 105 mmol/L (98-107); CO2 28 mmol/L (21-32); CREATININE 0.8 mg/dL (0.6-1.3); GLUCOSE 114 mg/dL (70-99); POTASSIUM 3.2 mmol/L (3.5-5.1); SODIUM 145 mmol/L (136-145)
[2018-01-27 03:32] LABS: ALBUMIN 3.5 g/dL (3.4-5.0); ALKALINE PHOSPHATASE 61 U/L (46-116); LIPASE 427 U/L (73-393); SGPT 38 U/L (30-65); TOTAL BILIRUBIN 0.3 mg/dL (<0.1-1.0); TOTAL PROTEIN 7.1 g/dL (6.4-8.2); TROPONIN-I LEVEL <0.06 ng/mL (<0.06)
[2018-01-27 03:47] LABS: SGOT 27 U/L (15-37)
[2018-01-27 04:18] LABS: URINE BILIRUBIN NEGATIVE (Negative); URINE BLOOD NEGATIVE (Negative); URINE CLARITY CLEAR; URINE COLOR YELLOW; URINE GLUCOSE-RANDOM NEGATIVE (Negative); URINE KETONES NEGATIVE (Negative); URINE NITRITE-REFLEX NEGATIVE (Negative); URINE PROTEIN NEGATIVE (Negative); URINE UROBILINOGEN 0.2 E.U./dl (0.2-1.0)
[2018-01-27 04:21] LABS: URINE LEUKOCYTES-REFLEX 2+ (Negative)
[2018-01-27 05:31] LABS: BACTERIA-REFLEX 1-9 Few /HPF (None Seen); CASTS None Seen /LPF (None Seen); CRYSTALS None Seen /LPF (None Seen); MUCUS 0-3 Light strn/LPF (None Seen); SQUAMOUS 0-3 Few /LPF (0-3); URINE RBC 0-2 Rare /HPF (0-2); URINE WBC-REFLEX 6-15 Few /HPF (0-5)
[2018-01-27 08:00] VITALS: BP 155/108
[2018-01-27 08:30] VITALS: BP 157/99
--- NOTE | 2018-01-27 08:59 | NUR ---
PATIENT ADMITTED TO ROOM 318 VIA CART FROM ER AT 0810. PATIENT'S ASSESSMENT AND HISTORY OBTAINED. VSS ON RA. PATIENT'S IV FLUIDS STARTED TO LEFT HAND IV. PATIENT NPO PER ORDERS. HOME MEDS VERIFIED. PATIENT STATES PAIN IS 8/10. ADMIT ORDERS DISCUSSED WITH PATIENT. HOURLY ROUNDING MAINTAINED. CALL LIGHT WITHIN REACH. WILL CONTINUE WITH PLAN OF CARE.
[2018-01-27 09:29] LABS: PHOSPHORUS* 3.4 mg/dL (2.5-4.9)
[2018-01-27 11:10] LABS: AMP/METHAMP Negative (Negative); BARBITURATES Negative (Negative); BENZODIAZEPINES Negative (Negative); COCAINE Negative (Negative); METHADONE Negative (Negative); OPIATES Negative (Negative); PCP Negative (Negative); THC Negative (Negative)
[2018-01-27 11:37] VITALS: BP 154/98
--- NOTE | 2018-01-27 11:48 | EKG ---
[place] [address] ELECTROCARDIOGRAM REPORT Name: JAMAL GUTIERREZ [place] Room: [address] ADM IN ..#: [id number] Admission: 01/27/18 Attend Phys: Chan Causey MD Discharge: Date of : 82 Report #: [id number] THIS REPORT FOR: //name// [facility] ED Test Date: 2018-01-27 Test Time: 03:37:33 Pat Name: JAMAL GUTIERREZ Department: Room: [facility] Gender: M Return Agent Airport: Ximena DWYER : 1980 Requested By: Rod Palomino Order Number: [id number] MD: Jerald Reina Measurements Intervals [place] Rate: 74 P: 14 MO: 149 QRS: -23 QRSD: 86 T: -18 QT: 407 QTc: 452 Interpretive Statements Sinus rhythm Probable left atrial enlargement Borderline left axis deviation Borderline T abnormalities, diffuse leads Compared to ECG 01/10/2018 04:14:26 No significant changes Electronically Signed On 01-27-2018 11:47:56 CHARACTER ACTRESS by Jerald Reina [email or web address] <ELECTRONICALLY SIGNED> By: Jerald Reina MD, FACC 01/27/18 1147 0337 0337 Jerald Reina MD, [facility] /EPI
[2018-01-27 15:39] VITALS: BP 160/102
--- NOTE | 2018-01-27 17:25 | NUR ---
SW met with pt to complete initial assessment, introduce self, and SW role. Pt alert but sleepy and oriented. Pt continues to live in a motel with his and children. Pt said that he was able to find a job that he just started but hasn't been paid yet. Pt receptive to SW providing resources for finding a doctor closer than [place] and other resources for rx assistance, etc. Pt said he feels that he would not drink alcohol if he was able to sleep and have the correct medications so he is not so anxious. SW to continue to follow to assist with safe dc planning.
--- NOTE | 2018-01-27 18:09 | NUR ---
PATIENT HAS BEEN A/O X 4 THIS SHIFT. PATIENT CONTINUES ON STUDIO SET UP WORKER, TRACING NSR. MEDICATED FOR ABDOMINAL PAIN X 2 WITH PRN HYDROOCODONE WITH LITTLE RELIEF. PATIENT GIVEN ATIVAN X 1 THIS AFTERNOON FOR ANXIETY. PATIENT CONTINUES ON IV FLUIDS AND IV MULTIVITAMIN. GIVEN ROCEHIN THIS SHIFT FOR + UTI. PATIENT CONTINUES TO BE NPO. PATIENT TO HAVE REPEAT LABS IN AM. HOURLY ROUNDING COMPLETED. CALL LIGHT WITHIN REACH. WILL CONTINUE WITH PLAN OF CARE.
[2018-01-27 19:30] VITALS: BP 154/106
[2018-01-28] VITALS (7 sets, daily range): BP systolic 104–144; BP diastolic 51–99
[2018-01-28 04:30] LABS: ABSOLUTE EOSINOPHILS 0.3 thou/uL (0.0-0.7); ABSOLUTE LYMPHOCYTES 1.9 thou/uL (0.8-5.3); ABSOLUTE MONOCYTES 0.9 thou/uL (0.0-1.2); ABSOLUTE NEUTROPHILS 4.9 thou/uL (1.6-8.1); BASOPHILS 0.2 %; EOSINOPHILS 3.2 %; HEMATOCRIT 46.4 % (42.0-52.0); HEMOGLOBIN 15.7 gm/dL (14.0-18.0); LYMPHOCYTES 23.3 %; MCH 35.2 pg (26.0-34.0); MCHC 33.9 g/dL (28.0-37.0); MCV 103.8 fL (80.0-100.0); MONOCYTES 11.3 %; MPV 8.4 fl. (7.2-11.1); NUCLEATED RBCS 0 /100WBC; PLATELET COUNT* 188 thou/uL (150-400); RBC 4.47 mil/uL (4.50-6.00); RDW-CV 13.3 % (10.5-14.5)
[2018-01-28 04:36] LABS: ANION GAP 7 mmol/L (7-16); BUN 10 mg/dL (7-18); CALCIUM 7.6 mg/dL (8.5-10.1); CHLORIDE 106 mmol/L (98-107); CHOLESTEROL 144 mg/dL (<200); CO2 28 mmol/L (21-32); CREATININE 0.8 mg/dL (0.6-1.3); GLUCOSE 84 mg/dL (70-99); HDL CHOLESTEROL 24 mg/dL (>40); LDL CHOLESTEROL 81 mg/dL (<100); LIPASE 158 U/L (73-393); SODIUM 141 mmol/L (136-145); TRIGLYCERIDE 197 mg/dL (<150); VLDL 39 mg/dL (<40)
[2018-01-28 04:38] LABS: SERUM ASSESSMENT Clear
--- NOTE | 2018-01-28 06:05 | NUR ---
PT SLEPT MOST OF SHIFT. ASSESSMENT DOCUMENTED. MEDS GIVEN PER E-MAR. IV PATENT, FLUDIS INFUSING. PAIN AND ANXIETY MEDS GIVEN PER E-MAR WITH PARTIAL RELIEF. CIWA DOCUMENTED. WILL CONTINUE WITH PLAN OF CARE.
--- NOTE | 2018-01-28 13:42 | NUR ---
SW provided resources and referrals to finding a different physician in this area, drug/alcohol resources/support services, mental health referrals and rx assistance information as well as other community resources.
--- NOTE | 2018-01-28 17:19 | NUR ---
PATIENT HAS BEEN A/O X 4 THIS SHIFT. MEDICATED FOR PAIN WITH PRN HYDROCODONE WITH EFFECT. PATIENT CONTINUES ON CUSTOMER SERVICE REPRESENTATIVE TELLER, TRACING NSR. PATIENT CONTINUES ON IV FLUIDS AND IV MULTIVITAMINS. PATIENT UP AD CRISTINA IN ROOM. PATIENT GIVEN ATIVAN X 1 FOR ANXIETY. DIET ADVANCED TO FULL LIQUIDS. PATIENT HOPEFUL TO BE DISCHARGED HOME ON SATURDAY. HOURLY ROUNDING COMPLETED. CALL LIGHT WITHIN REACH. WILL CONTINUE WITH PLAN OF CARE.
[2018-01-29] VITALS: BP 148/84
[2018-01-29 04:30] VITALS: BP 154/89
--- NOTE | 2018-01-29 05:34 | NUR ---
PT SLEPT MOST OF SHIFT. ASSESSMENT DOCUMENTED. MEDS GIVEN PER E-MAR. IV PATENT, FLUIDS INFUSING. PAIN AND ANXIETY MEDICATION GIVEN PER E-MAR WITH RELIEF. PT IS ASKING IF HE COULD GO HOME ON SOMETHING FOR ANXIETY, PT STATES THAT THE REASON HE DRINKS IS BECAUSE HE IS ANXIOUS AT HOME. PT STATES HE WANTS TO SEE IF HE CAN GET "REAL FOOD" FOR BREAKFAST. WILL CONTINUE WITH PLAN OF CARE.
[2018-01-29 05:42] LABS: CALCIUM 8.2 mg/dL (8.5-10.1); CREATININE 0.9 mg/dL (0.6-1.3); POTASSIUM 3.5 mmol/L (3.5-5.1)
[2018-01-29 09:00] VITALS: BP 153/89
--- NOTE | 2018-01-29 11:32 | NUR ---
PATIENT REMOVED CONFORMAL PAD FORMER, STATED DR PORRAS STATED PATIENT WAS GOING TO BE DISCHARGED TODAY. IV FLUIDS STOPPED AND INFORMED SOON RN HAD PAPERWORK, PATIENT WOULD BE DISCHARGED. PATIENT INFORMED OF THE ABOVE.
[2018-01-29 11:44] VITALS: BP 153/89
[2018-01-29] MEDS ORDERED: BACTRIM DS TAB1 EACH PO (12:00)
--- NOTE | 2018-01-29 12:07 | NUR ---
PATIENT'S PRESCRIPTION OF BACTRIM CALLED INTO [facility]. PATIENT REMOVED OWN IV. PATIENT VERBALIZED UNDERSTANDING IN REGARDS TO DISCHARGE. PATIENT AMBULATED OFF NURSING UNIT WITH NURSING STAFF. DISCHARGED WITH ALL BELOGNINGS.
== END 2018-01-29 12:12 | disposition home or self-care (01) | DRG 439 ==
LOC: M.ERS 02:29 → M.TBA-ER 04:22 → M.3W 04:22 → M.TBA-ER 06:28 → M.3W 08:09
PROVIDERS: Family Medicine; ADMIT Internal Medicine
DX: K85.20 Alcohol induced acute pancreatitis without necrosis or infection (principal); N39.0 Urinary tract infection, site not specified; I10 Essential (primary) hypertension; K21.9 Gastro-esophageal reflux disease without esophagitis; F17.210 Nicotine dependence, cigarettes, uncomplicated; F12.90 Cannabis use, unspecified, uncomplicated; F10.129 Alcohol abuse with intoxication, unspecified; Z82.49 Family history of ischemic heart disease and other diseases of the circulatory system; Z87.442 Personal history of urinary calculi

== ENCOUNTER 2018-04-08 12:40 | Emergency (ER) | payer OTHER ==
[~2018-04-08] VITALS: Ht 165.1 cm; Wt 86.2 kg
[~2018-04-08 12:40] MED LIST changes: +BACTRIM DS TAB1 EACH PO
[2018-04-08 13:22] LABS: ABSOLUTE BASOPHILS 0.1 thou/uL (0.0-0.2); ABSOLUTE EOSINOPHILS 0.2 thou/uL (0.0-0.7); ABSOLUTE LYMPHOCYTES 2.3 thou/uL (0.8-5.3); ABSOLUTE MONOCYTES 0.6 thou/uL (0.0-1.2); ABSOLUTE NEUTROPHILS 6.6 thou/uL (1.6-8.1); BASOPHILS 0.9 %; EOSINOPHILS 1.7 %; HEMATOCRIT 50.7 % (42.0-52.0); HEMOGLOBIN 17.4 gm/dL (14.0-18.0); LYMPHOCYTES 23.1 %; MCH 34.8 pg (26.0-34.0); MCHC 34.3 g/dL (28.0-37.0); MCV 101.4 fL (80.0-100.0); MONOCYTES 6.6 %; MPV 8.2 fl. (7.2-11.1); NUCLEATED RBCS 0 /100WBC; PLATELET COUNT* 253 thou/uL (150-400); POLYS 67.7 %; RBC 5.01 mil/uL (4.50-6.00); RDW-CV 14.3 % (10.5-14.5); WBC 9.8 thou/uL (4.0-11.0)
[2018-04-08 13:29] LABS: CALCIUM 8.4 mg/dL (8.5-10.1); CREATININE 1.1 mg/dL (0.6-1.3); POTASSIUM 3.7 mmol/L (3.5-5.1)
[2018-04-08 13:38] LABS: ALBUMIN 3.5 g/dL (3.4-5.0); TOTAL BILIRUBIN 0.4 mg/dL (<0.1-1.0); TOTAL PROTEIN 7.8 g/dL (6.4-8.2)
[2018-04-08] MEDS ORDERED: ONDANSETRON HCL4 M2 PO (14:25)
[2018-04-08] MEDS ORDERED: NORCO 5-325 TA1 EACH PO (14:25)
[2018-04-08] MEDS ORDERED: NABUMETONE 750750 M1 PO (14:25)
[2018-04-08 14:30] LABS: URINE BILIRUBIN NEGATIVE (Negative); URINE BLOOD NEGATIVE (Negative); URINE CLARITY CLEAR; URINE COLOR YELLOW; URINE GLUCOSE-RANDOM NEGATIVE (Negative); URINE KETONES NEGATIVE (Negative); URINE LEUKOCYTES-REFLEX NEGATIVE (Negative); URINE NITRITE-REFLEX NEGATIVE (Negative); URINE PROTEIN 1+ (Negative); URINE SPECIFIC GRAVITY >= 1.030 (1.005-1.030); URINE UROBILINOGEN 0.2 E.U./dl (0.2-1.0)
[2018-04-08 14:35] LABS: BACTERIA-REFLEX None Seen /HPF (None Seen); SQUAMOUS 0-3 Few /LPF (0-3); URINE RBC 0-2 Rare /HPF (0-2); URINE WBC-REFLEX 0-5 Rare /HPF (0-5)
[2018-04-08 14:36] LABS: AMP/METHAMP Negative (Negative); BARBITURATES Negative (Negative); BENZODIAZEPINES Negative (Negative); COCAINE Negative (Negative); METHADONE Negative (Negative); OPIATES Negative (Negative); PCP Negative (Negative); THC Negative (Negative)
[2018-04-08 14:36] LABS: CASTS None Seen /LPF (None Seen); CRYSTALS None Seen /LPF (None Seen)
[2018-04-08 16:12] VITALS: BP 151/104
== END 2018-04-08 16:12 | disposition left against medical advice (07) ==
LOC: M.ERS 12:40
PROVIDERS: Nurse Practitioner Family
DX: K85.90 Acute pancreatitis without necrosis or infection, unspecified (principal); I10 Essential (primary) hypertension; K21.9 Gastro-esophageal reflux disease without esophagitis; F17.210 Nicotine dependence, cigarettes, uncomplicated

== ENCOUNTER 2018-04-11 13:58 | Emergency (ER) | payer OTHER ==
[~2018-04-11] VITALS: Ht 165.1 cm; Wt 86.2 kg
[~2018-04-11 13:58] MED LIST changes: +NABUMETONE 750750 M1 PO; +ONDANSETRON HCL4 M2 PO
[2018-04-11 14:31] LABS: ABSOLUTE BASOPHILS 0.1 thou/uL (0.0-0.2); ABSOLUTE EOSINOPHILS 0.1 thou/uL (0.0-0.7); ABSOLUTE LYMPHOCYTES 2.5 thou/uL (0.8-5.3); ABSOLUTE MONOCYTES 0.6 thou/uL (0.0-1.2); ABSOLUTE NEUTROPHILS 3.3 thou/uL (1.6-8.1); BASOPHILS 0.9 %; HEMATOCRIT 51.2 % (42.0-52.0); HEMOGLOBIN 17.5 gm/dL (14.0-18.0); LYMPHOCYTES 38.1 %; MCH 34.4 pg (26.0-34.0); MCHC 34.1 g/dL (28.0-37.0); MONOCYTES 8.4 %; MPV 8.1 fl. (7.2-11.1); NUCLEATED RBCS 0 /100WBC; PLATELET COUNT* 294 thou/uL (150-400); POLYS 50.6 %; RBC 5.07 mil/uL (4.50-6.00); RDW-CV 14.6 % (10.5-14.5); WBC 6.5 thou/uL (4.0-11.0)
[2018-04-11 14:48] LABS: CALCIUM 8.9 mg/dL (8.5-10.1); CREATININE 1.2 mg/dL (0.6-1.3); POTASSIUM 3.1 mmol/L (3.5-5.1)
[2018-04-11 14:53] LABS: ALBUMIN 3.3 g/dL (3.4-5.0); TOTAL BILIRUBIN 0.4 mg/dL (<0.1-1.0); TOTAL PROTEIN 7.3 g/dL (6.4-8.2)
[2018-04-11 15:01] LABS: URINE BLOOD NEGATIVE (Negative); URINE CLARITY CLEAR; URINE COLOR YELLOW; URINE GLUCOSE-RANDOM NEGATIVE (Negative); URINE KETONES TRACE (Negative); URINE LEUKOCYTES-REFLEX NEGATIVE (Negative); URINE NITRITE-REFLEX NEGATIVE (Negative); URINE PROTEIN 1+ (Negative); URINE SPECIFIC GRAVITY 1.025 (1.005-1.030); URINE UROBILINOGEN 0.2 E.U./dl (0.2-1.0)
[2018-04-11 15:02] LABS: ICTOTEST (BILI CONFIRMATORY) Negative (Negative); URINE BILIRUBIN 1+ (Negative)
[2018-04-11] MEDS ORDERED: NORCO 5-325 TA1 EACH PO (16:32)
[2018-04-11 16:47] VITALS: BP 154/97
== END 2018-04-11 16:48 | disposition home or self-care (01) ==
LOC: M.ERS 13:58
PROVIDERS: Nurse Practitioner Family
DX: K85.90 Acute pancreatitis without necrosis or infection, unspecified (principal); F17.210 Nicotine dependence, cigarettes, uncomplicated; I10 Essential (primary) hypertension; K21.9 Gastro-esophageal reflux disease without esophagitis; K58.9 Irritable bowel syndrome, unspecified; Z87.442 Personal history of urinary calculi

== ENCOUNTER 2018-05-19 06:38 | Emergency (ER) | payer OTHER ==
[~2018-05-19] VITALS: Ht 167.6 cm; Wt 86.2 kg
[2018-05-19 06:48] VITALS: BP 158/104
[2018-05-19 07:09] LABS: ABSOLUTE EOSINOPHILS 0.2 thou/uL (0.0-0.7); ABSOLUTE MONOCYTES 0.5 thou/uL (0.0-1.2); ABSOLUTE NEUTROPHILS 4.7 thou/uL (1.6-8.1); BASOPHILS 0.6 %; EOSINOPHILS 2.1 %; HEMATOCRIT 47.6 % (42.0-52.0); HEMOGLOBIN 16.1 gm/dL (14.0-18.0); MCH 33.6 pg (26.0-34.0); MCHC 33.8 g/dL (28.0-37.0); MCV 99.2 fL (80.0-100.0); MPV 8.2 fl. (7.2-11.1); NUCLEATED RBCS 0 /100WBC; PLATELET COUNT* 217 thou/uL (150-400); POLYS 63.3 %; RDW-CV 13.9 % (10.5-14.5); WBC 7.4 thou/uL (4.0-11.0)
[2018-05-19 07:19] LABS: ALBUMIN 3.2 g/dL (3.4-5.0); CALCIUM 8.7 mg/dL (8.5-10.1); CREATININE 1.1 mg/dL (0.6-1.3); POTASSIUM 3.5 mmol/L (3.5-5.1); TOTAL BILIRUBIN 0.4 mg/dL (<0.1-1.0); TOTAL PROTEIN 6.9 g/dL (6.4-8.2)
[2018-05-19 07:40] LABS: URINE BILIRUBIN NEGATIVE (Negative); URINE BLOOD NEGATIVE (Negative); URINE CLARITY CLEAR; URINE COLOR YELLOW; URINE GLUCOSE-RANDOM NEGATIVE (Negative); URINE KETONES NEGATIVE (Negative); URINE LEUKOCYTES-REFLEX 1+ (Negative); URINE NITRITE-REFLEX NEGATIVE (Negative); URINE PROTEIN NEGATIVE (Negative); URINE UROBILINOGEN 0.2 E.U./dl (0.2-1.0)
[2018-05-19 07:47] LABS: AMP/METHAMP Negative (Negative); BARBITURATES Negative (Negative); BENZODIAZEPINES Negative (Negative); COCAINE POSITIVE (Negative); METHADONE Negative (Negative); OPIATES Negative (Negative); PCP Negative (Negative); SQUAMOUS NONE SEEN /LPF (0-3); THC POSITIVE (Negative)
[2018-05-19 07:48] LABS: BACTERIA-REFLEX None Seen /HPF (None Seen); CASTS None Seen /LPF (None Seen); MUCUS 4-6 Moderate strn/LPF (None Seen); URINE RBC None Seen /HPF (0-2); URINE WBC-REFLEX 6-15 Few /HPF (0-5)
[2018-05-19 07:49] LABS: AMORPHOUS PHOSPHATES Moderate /LPF (None Seen)
--- NOTE | 2018-05-19 08:08 | NUR ---
DR LEDEZMA ORDERED A URINE ON PT DUE TO FEMALE ANATOMY.
[2018-05-19 08:27] VITALS: BP 137/71
--- NOTE | 2018-05-19 09:20 | NUR ---
YAO NOTIFIED UPON PT RETURN FROM CT. PT WAS NOT CONNECTED TO MONITOR HE WAS NOT CONNECTED PRIOR TO GOING TO CT
[2018-05-19] MEDS ORDERED: ZOFRAN ODT4 MG DISSOLVE (12:25)
[2018-05-19] MEDS ORDERED: HYDROCODONE-AP1 EAC6 PO (12:25)
[2018-05-19 12:44] VITALS: BP 120/78
== END 2018-05-19 08:28 | disposition home or self-care (01) ==
LOC: M.ERS 06:38 → M.TBA-ER 09:43
PROVIDERS: Personal Emergency Response Attendant
DX: K85.90 Acute pancreatitis without necrosis or infection, unspecified (principal); F17.210 Nicotine dependence, cigarettes, uncomplicated; I10 Essential (primary) hypertension; K21.9 Gastro-esophageal reflux disease without esophagitis; K58.9 Irritable bowel syndrome, unspecified; Z87.442 Personal history of urinary calculi

== ENCOUNTER 2018-06-17 07:00 | Emergency (ER) | payer OTHER ==
[~2018-06-17] VITALS: Ht 165.1 cm; Wt 83.9 kg
[~2018-06-17 07:00] MED LIST changes: +HYDROCODONE-AP1 EAC6 PO; +ZOFRAN ODT4 MG DISSOLVE
[2018-06-17] MEDS ORDERED: CLARITIN10 MG PO (07:14)
[2018-06-17 07:25] LABS: URINE BILIRUBIN NEGATIVE (Negative); URINE BLOOD 3+ (Negative); URINE CLARITY CLEAR; URINE COLOR YELLOW; URINE GLUCOSE-RANDOM NEGATIVE (Negative); URINE KETONES 1+ (Negative); URINE LEUKOCYTES-REFLEX NEGATIVE (Negative); URINE NITRITE-REFLEX NEGATIVE (Negative); URINE PROTEIN 2+ (Negative); URINE SPECIFIC GRAVITY >= 1.030 (1.005-1.030); URINE UROBILINOGEN 0.2 E.U./dl (0.2-1.0)
[2018-06-17 07:31] LABS: ABSOLUTE BASOPHILS 0.1 thou/uL (0.0-0.2); ABSOLUTE EOSINOPHILS 0.2 thou/uL (0.0-0.7); ABSOLUTE LYMPHOCYTES 2.1 thou/uL (0.8-5.3); ABSOLUTE MONOCYTES 0.6 thou/uL (0.0-1.2); ABSOLUTE NEUTROPHILS 5.2 thou/uL (1.6-8.1); BASOPHILS 0.7 %; EOSINOPHILS 1.9 %; HEMATOCRIT 48.6 % (42.0-52.0); HEMOGLOBIN 16.9 gm/dL (14.0-18.0); LYMPHOCYTES 25.7 %; MCH 34.2 pg (26.0-34.0); MCHC 34.7 g/dL (28.0-37.0); MCV 98.5 fL (80.0-100.0); MONOCYTES 7.8 %; MPV 8.3 fl. (7.2-11.1); NUCLEATED RBCS 0 /100WBC; PLATELET COUNT* 226 thou/uL (150-400); POLYS 63.9 %; RBC 4.93 mil/uL (4.50-6.00); WBC 8.1 thou/uL (4.0-11.0)
[2018-06-17 07:32] LABS: BACTERIA-REFLEX 1-9 Few /HPF (None Seen); HYALINE CASTS 0-3 Few /LPF (None Seen); MUCUS >6 Heavy strn/LPF (None Seen); URINE WBC-REFLEX 0-5 Rare /HPF (0-5)
[2018-06-17 07:33] LABS: SQUAMOUS 4-10 Moderate /LPF (0-3)
[2018-06-17 07:35] LABS: CRYSTALS None Seen /LPF (None Seen)
[2018-06-17 07:47] LABS: ALBUMIN 3.7 g/dL (3.4-5.0); CALCIUM 8.9 mg/dL (8.5-10.1); CREATININE 1.2 mg/dL (0.6-1.3); POTASSIUM 3.3 mmol/L (3.5-5.1); TOTAL BILIRUBIN 0.6 mg/dL (<0.1-1.0); TOTAL PROTEIN 7.7 g/dL (6.4-8.2)
[2018-06-17 08:20] VITALS: BP 146/92
[2018-06-17] MEDS ORDERED: HYDROCODON-ACE1 EAC7 PO (09:27)
[2018-06-17] MEDS ORDERED: ZOFRAN ODT4 MG PO (09:27)
== END 2018-06-17 09:35 | disposition home or self-care (01) ==
LOC: M.ERS 07:00
PROVIDERS: Personal Emergency Response Attendant
DX: K85.90 Acute pancreatitis without necrosis or infection, unspecified (principal); K21.9 Gastro-esophageal reflux disease without esophagitis; K58.9 Irritable bowel syndrome, unspecified; F17.210 Nicotine dependence, cigarettes, uncomplicated; Z87.442 Personal history of urinary calculi

== ENCOUNTER 2018-06-18 07:01 | Observation (INO) | payer OTHER ==
[~2018-06-18] VITALS: Ht 165.1 cm; Wt 83.9 kg
[~2018-06-18 07:01] MED LIST changes: +CLARITIN10 MG PO; +HYDROCODON-ACE1 EAC7 PO; +ZOFRAN ODT4 MG PO
[2018-06-18 07:10] VITALS: BP 156/123
[2018-06-18 07:30] LABS: ABSOLUTE EOSINOPHILS 0.1 thou/uL (0.0-0.7); ABSOLUTE LYMPHOCYTES 1.8 thou/uL (0.8-5.3); ABSOLUTE MONOCYTES 0.5 thou/uL (0.0-1.2); ABSOLUTE NEUTROPHILS 5.2 thou/uL (1.6-8.1); BASOPHILS 0.4 %; EOSINOPHILS 1.6 %; HEMATOCRIT 48.2 % (42.0-52.0); HEMOGLOBIN 16.8 gm/dL (14.0-18.0); LYMPHOCYTES 23.6 %; MCH 34.3 pg (26.0-34.0); MCHC 34.9 g/dL (28.0-37.0); MCV 98.4 fL (80.0-100.0); MPV 8.4 fl. (7.2-11.1); NUCLEATED RBCS 0 /100WBC; PLATELET COUNT* 226 thou/uL (150-400); POLYS 67.4 %; WBC 7.6 thou/uL (4.0-11.0)
[2018-06-18 07:35] LABS: URINE BILIRUBIN NEGATIVE (Negative); URINE BLOOD TRACE (Negative); URINE CLARITY CLEAR; URINE COLOR YELLOW; URINE GLUCOSE-RANDOM NEGATIVE (Negative); URINE KETONES NEGATIVE (Negative); URINE LEUKOCYTES-REFLEX NEGATIVE (Negative); URINE NITRITE-REFLEX NEGATIVE (Negative); URINE PROTEIN TRACE (Negative); URINE SPECIFIC GRAVITY 1.025 (1.005-1.030); URINE UROBILINOGEN 0.2 E.U./dl (0.2-1.0)
[2018-06-18 07:39] LABS: AMP/METHAMP Negative (Negative); BARBITURATES Negative (Negative); BENZODIAZEPINES Negative (Negative); COCAINE Negative (Negative); METHADONE Negative (Negative); OPIATES POSITIVE (Negative); PCP Negative (Negative); THC POSITIVE (Negative)
[2018-06-18 07:59] LABS: ALBUMIN 3.8 g/dL (3.4-5.0); CALCIUM 8.8 mg/dL (8.5-10.1); POTASSIUM 3.2 mmol/L (3.5-5.1); TOTAL BILIRUBIN 0.9 mg/dL (<0.1-1.0); TOTAL PROTEIN 7.8 g/dL (6.4-8.2)
[2018-06-18 11:20] VITALS: BP 157/99
[2018-06-18 11:30] VITALS: BP 177/97
[2018-06-18 15:52] VITALS: BP 168/111
--- NOTE | 2018-06-18 18:43 | NUR ---
PT ALERT AND ORIENTED X 4. PAIN MANAGED WITH IV MORPHINE. IVF INFUSING. UP AD CRISTINA TO BR. PHYSICIAN INFORMED OF INCREASED BLOOD PRESSURE. NNO RECEIVED. HOURLY ROUNDS MAINTAINED. CALL LIGHT WITHIN REACH.
[2018-06-18 20:15] VITALS: BP 147/85
[2018-06-19 04:43] LABS: CALCIUM 8.5 mg/dL (8.5-10.1); CREATININE 0.8 mg/dL (0.6-1.3); MAGNESIUM 1.9 mg/dL (1.8-2.4); POTASSIUM 3.8 mmol/L (3.5-5.1)
--- NOTE | 2018-06-19 06:16 | NUR ---
PT CONTINUES TO RECIEVE IV MORPHINE AND ZOFRAN FOR ABDOMINAL PAIN. PT TOLERATING CLEAR LIQUIDS WITHOUT DIFFICULTY. NO ACUTE CHANGES DURING SHIFT. VITAL SIGNS WITHIN NORMAL LIMITS. WILL CONTINUE PLAN OF CARE.
[2018-06-19 08:00] VITALS: BP 145/90
[2018-06-19] MEDS ORDERED: ZOFRAN ODT4 MG PO (08:24)
[2018-06-19] MEDS ORDERED: HYDROCODON-ACE1 EAC7 PO (08:24)
[2018-06-19 11:27] VITALS: BP 145/90
[2018-06-19 11:42] VITALS: BP 145/90
[2018-06-19 12:50] VITALS: BP 145/90
--- NOTE | 2018-06-19 12:51 | NUR ---
PT IS ALERT AND ORIENTED X 4. PT GIVEN PO PAIN MEDICATION IN AM. UP AD CRISTINA IN ROOM. DENIES NAUSEA AT THIS TIME REQUESTING ADDITIONAL JELLO TO INTAKE. PT GIVEN DISCHARGE INSTRUCTIONS ALONG WITH PRESCRIPTIONS. IV REMOVED. PT WAS ABLE TO AMBULATE WITH NURSING STAFF AND SPOUSE TO LEAVE THE UNIT WITH PERSONAL BELONGINGS @ 1215 TO LEAVE BY PRIVATE CAR.
== END 2018-06-19 12:15 | disposition home or self-care (01) ==
LOC: M.ERS 07:01 → M.ORTHSURG 10:19 → M.TBA-ER 10:19 → M.ORTHSURG 11:27
PROVIDERS: Personal Emergency Response Attendant; ADMIT Internal Medicine
DX: K86.1 Other chronic pancreatitis (principal); E86.1 Hypovolemia; E87.6 Hypokalemia; F10.10 Alcohol abuse, uncomplicated; F12.10 Cannabis abuse, uncomplicated; F17.200 Nicotine dependence, unspecified, uncomplicated; G89.29 Other chronic pain; K21.9 Gastro-esophageal reflux disease without esophagitis; K58.9 Irritable bowel syndrome, unspecified; R55 Syncope and collapse; E86.9 Volume depletion, unspecified; E83.42 Hypomagnesemia; G35 Multiple sclerosis; R73.03 Prediabetes; I65.29 Occlusion and stenosis of unspecified carotid artery; I12.9 Hypertensive chronic kidney disease with stage 1 through stage 4 chronic kidney disease, or unspecified chronic kidney disease; N18.3 Chronic kidney disease, stage 3 (moderate); I95.9 Hypotension, unspecified

== ENCOUNTER 2018-07-25 10:22 | Inpatient (IN) | payer OTHER ==
[2018-07-25] VITALS (12 sets, daily range): BP systolic 101–121; BP diastolic 50–87
[~2018-07-25] VITALS: Ht 165.1 cm; Wt 73.8 kg
[2018-07-25] MEDS ORDERED: LISINOPRIL10 MG PO (10:36)
[2018-07-25 10:57] LABS: ABSOLUTE BASOPHILS 0.1 thou/uL (0.0-0.2); ABSOLUTE EOSINOPHILS 0.3 thou/uL (0.0-0.7); ABSOLUTE MONOCYTES 0.9 thou/uL (0.0-1.2); ABSOLUTE NEUTROPHILS 9.1 thou/uL (1.6-8.1); BASOPHILS 0.5 %; EOSINOPHILS 2.4 %; HEMATOCRIT 51.1 % (42.0-52.0); HEMOGLOBIN 17.4 gm/dL (14.0-18.0); LYMPHOCYTES 15.9 %; MCH 34.5 pg (26.0-34.0); MCHC 34.1 g/dL (28.0-37.0); MCV 101.1 fL (80.0-100.0); MONOCYTES 7.5 %; MPV 8.6 fl. (7.2-11.1); NUCLEATED RBCS 0 /100WBC; PLATELET COUNT* 374 thou/uL (150-400); POLYS 73.7 %; RBC 5.05 mil/uL (4.50-6.00); RDW-CV 14.2 % (10.5-14.5); WBC 12.4 thou/uL (4.0-11.0)
[2018-07-25 11:06] LABS: ANION GAP 19 mmol/L (7-16); BUN 45 mg/dL (7-18); CALCIUM 9.7 mg/dL (8.5-10.1); CHLORIDE 97 mmol/L (98-107); CO2 23 mmol/L (21-32); CREATININE 7.7 mg/dL (0.6-1.3); GLUCOSE 146 mg/dL (70-99); POTASSIUM 3.4 mmol/L (3.5-5.1); SODIUM 139 mmol/L (136-145)
[2018-07-25 11:16] LABS: ALBUMIN 4.1 g/dL (3.4-5.0); ALKALINE PHOSPHATASE 91 U/L (46-116); SGOT 13 U/L (15-37); SGPT 20 U/L (30-65); TOTAL BILIRUBIN 0.6 mg/dL (<0.1-1.0); TOTAL PROTEIN 8.7 g/dL (6.4-8.2); TROPONIN-I LEVEL <0.06 ng/mL (<0.06)
[2018-07-25 11:40] LABS: URINE BLOOD 1+ (Negative); URINE CLARITY CLEAR; URINE COLOR YELLOW; URINE GLUCOSE-RANDOM NEGATIVE (Negative); URINE KETONES TRACE (Negative); URINE NITRITE-REFLEX NEGATIVE (Negative); URINE PROTEIN 1+ (Negative); URINE SPECIFIC GRAVITY >= 1.030 (1.005-1.030); URINE UROBILINOGEN 0.2 E.U./dl (0.2-1.0)
[2018-07-25 11:41] LABS: ICTOTEST (BILI CONFIRMATORY) Negative (Negative); URINE BILIRUBIN 1+ (Negative); URINE LEUKOCYTES-REFLEX 2+ (Negative)
[2018-07-25 11:51] LABS: URINE WBC-REFLEX >25 Many /HPF (0-5)
[2018-07-25 11:52] LABS: AMP/METHAMP POSITIVE (Negative); BARBITURATES Negative (Negative); BENZODIAZEPINES Negative (Negative); CASTS None Seen /LPF (None Seen); COCAINE Negative (Negative); METHADONE Negative (Negative); MUCUS None Seen strn/LPF (None Seen); OPIATES POSITIVE (Negative); PCP Negative (Negative); SQUAMOUS >10 Many /LPF (0-3); THC Negative (Negative); URINE RBC 3-10 Few /HPF (0-2)
[2018-07-25 11:53] LABS: AMORPHOUS URATES Moderate /LPF (None Seen)
[2018-07-25 12:31] LABS: CREATININE 7.7 mg/dL (0.6-1.3); POTASSIUM 3.3 mmol/L (3.5-5.1)
[2018-07-25 12:35] LABS: ALBUMIN 4.2 g/dL (3.4-5.0); TOTAL BILIRUBIN 0.6 mg/dL (<0.1-1.0)
--- NOTE | 2018-07-25 17:26 | NUR ---
PT MOVED TO HOSPITAL BED
[2018-07-26] VITALS (21 sets, daily range): BP systolic 96–154; BP diastolic 61–93
--- NOTE | 2018-07-26 00:07 | NUR ---
Pt c/o pain to abd and back. Pt response to pain is restlessness, tearful, and writhing at times. Dilaudid given per order, which pt reports immediate relief. However, pt intermittently very restless and writhing, tearful. States pain to comparable to when he had kidney stone. Pt admitted in June with similar symptoms. Dr. Mitchell (nephrology) consulted, ordered placement of soriano if pt tolerates. Pt voided 500 mls on BSC at 2100. Waited until after next dose of Dilaudid at [address]. Although soriano inserted with no difficulty, pt c/o burning right away and after 10 minutes pt tearful and crying while begging to have soriano removed. 375 mls clear yellow urine via soriano. Soriano dc'd at 2305 per pt request. Pt c/o burning for a few minutes afterward, and got up to BSC per request. Then burning subsided and pt got back to bed. Appeared to be resting comfortable afterwards. RN utilized old records from previous admit in June to complete admission. Pt states there are no changes from information provided in June. Pt confirms regular use of marijuana, and states last use was approx 2 weeks ago. Pt denies use of any other illicit drugs, and states he drinks ETOH (1-2 drinks) only on rare occasions. Otherwise, pt unable to cooperate with admission process due to either drowsiness following administration of pain medication, or due to pain. Pt either comfortable to the point of falling asleep while being asked questions, or writhing in pain and too restless to communicate effectively. VSS, afebrile to this point. Will continue to monitor.
[2018-07-26] MEDS ORDERED: VITAMINC500 PO (01:54)
[2018-07-26 05:15] LABS: HEMATOCRIT 41.5 % (42.0-52.0); MCH 34.2 pg (26.0-34.0); MCHC 33.6 g/dL (28.0-37.0); MPV 8.5 fl. (7.2-11.1); RBC 4.07 mil/uL (4.50-6.00); RDW-CV 14.4 % (10.5-14.5); WBC 9.8 thou/uL (4.0-11.0)
[2018-07-26 05:16] LABS: HEMOGLOBIN 13.9 gm/dL (14.0-18.0)
[2018-07-26 05:27] LABS: ALBUMIN 2.9 g/dL (3.4-5.0); CALCIUM 8.1 mg/dL (8.5-10.1); CREATININE 3.1 mg/dL (0.6-1.3); POTASSIUM 3.7 mmol/L (3.5-5.1); TOTAL BILIRUBIN 0.6 mg/dL (<0.1-1.0); TOTAL PROTEIN 6.5 g/dL (6.4-8.2)
--- NOTE | 2018-07-26 06:10 | NUR ---
Pt reports improved pain control during latter part of shift. Pt appeared to be asleep, awakening to call to void per BSC. Total intake: 3472; total output: 1675. Still c/o pain to abdomen and back, though not writhing in pain or tearful. VSS. Afebrile. Cr improved from 7.7 to 3.1. Will continue to monitor.
--- NOTE | 2018-07-26 10:19 | NUR ---
ASSUMED PT CARE 0730. PT DROWSY. PT EDUCATED TO NOTIFY RN WHEN NEEDING PAIN MEDICATION. PT FLUSHED. AFEBRILE. FAN ON. ICE PACKS OFFERED FOR COMFORT AND PT AGREED. PT VOIDED 675. VSS. WILL CONTINUE PLAN OF CARE.
--- NOTE | 2018-07-26 10:29 | EKG ---
[place] [address] ELECTROCARDIOGRAM REPORT Name: MILA GUTIERREZMOND [place] Room: [address] ADM IN M.R.#: [id number] Admission: 07/25/18 Attend Phys: Rubi Andrews Discharge: Date of : 82 Report #: [id number] THIS REPORT FOR: //name// [facility] ED Test Date: 2018-07-25 Test Time: 10:49:04 Pat Name: JAMAL GUTIERREZ Department: Room: [facility] Gender: Signals Collection Technician: Anupama LANDRY : 1980 Requested By: Margie Reese Order Number: [id number] MD: Jesus Capps Measurements Intervals [place] Rate: 71 P: 24 [place]: 146 QRS: -6 QRSD: 90 T: -39 QT: 427 QTc: 465 Interpretive Statements Sinus rhythm Probable left atrial enlargement Nonspecific T abnormalities, inferior leads Compared to ECG 01/27/2018 03:37:33 No significant changes Electronically Signed On 07-26-2018 10:29:01 CDT by Jesus Capps [email or web address] <ELECTRONICALLY SIGNED> By: Jesus Capps MD, FACC 07/26/18 1029 1049 1049 Jesus Capps MD, [facility] /EPI
--- NOTE | 2018-07-26 10:29 | EKG ---
[place] [address] ELECTROCARDIOGRAM REPORT Name: BELEMGENNYJAMAL UPLAND Room: [address] ADM IN M.R.#: [id number] Admission: 07/25/18 Attend Phys: Rubi Andrews Discharge: Date of : 82 Report #: [id number] THIS REPORT FOR: //name// [facility] ED Test Date: 2018-07-25 Test Time: 11:53:55 Pat Name: JAMAL GUTIERREZ Department: Room: [facility] Gender: M Radio Director: ABDULAZIZ : 1980 Requested By: Bryan Lepe Order Number: [id number] MD: Jesus Capps Measurements Intervals [place] Rate: 70 P: 39 MT: 142 QRS: -2 QRSD: 92 T: -85 QT: 443 QTc: 479 Interpretive Statements Sinus rhythm Probable left atrial enlargement Nonspecific T abnormalities, diffuse leads; consider ischemia Borderline prolonged QT interval Compared to ECG 01/27/2018 03:37:33 No significant changes Electronically Signed On 07-26-2018 10:29:26 CDT by Jesus Capps [email or web address] <ELECTRONICALLY SIGNED> By: Jesus Capps MD, [facility] 07/26/18 1029 1153 1153 Jesus Capps MD, [facility] /EPI
--- NOTE | 2018-07-26 17:00 | NUR ---
PT ST HEART RATE 120'S. NOTIFED. NO ORDERS RECEIVED.
--- NOTE | 2018-07-26 17:31 | NUR ---
PER HIMS PT OKAY TO ATTEMPT CLEAR LIQUIDS. IT THIS BRINGS ABDOIMANL PAIN, RETURN PT BACK TO NPO STATUS. THIS WAS DISCUSSED WITH PT. PT AGREEABLE TO CLEARS. PT HAS SLEPT MAJORITY OF SHIFT EXCEPT FOR VOIDING. PT HAS NOT ATTEMPTED TO HAVE CLEAR LIQUIDS. LIQUIDS AT BEDSIDE.
--- NOTE | 2018-07-26 18:00 | NUR ---
PT REPOSITIONS SELF IN BED.
[2018-07-27 04:46] VITALS: BP 138/88
[2018-07-27 05:11] LABS: HEMATOCRIT 37.4 % (42.0-52.0); HEMOGLOBIN 12.9 gm/dL (14.0-18.0); MCH 34.4 pg (26.0-34.0); MCHC 34.6 g/dL (28.0-37.0); MCV 99.6 fL (80.0-100.0); MPV 8.4 fl. (7.2-11.1); RBC 3.76 mil/uL (4.50-6.00); WBC 7.6 thou/uL (4.0-11.0)
[2018-07-27 05:41] LABS: CALCIUM 8.6 mg/dL (8.5-10.1); POTASSIUM 3.1 mmol/L (3.5-5.1)
--- NOTE | 2018-07-27 06:49 | NUR ---
Pt's Cr improved to 1.1 (3.1 yesterday). Voiding without difficulty. Tolerating ice water; denies pain other than brief mild headache at 2300. Pt was asleep shortly afterward. This am no complaints. Pt slept most of shift. Repositions self in bed. HR 90s at this time, but 100s-110s for majority of shift. BP 130s-150s/80s-90s. Pt takes propranolol and zestril at home. Will continue to monitor.
[2018-07-27 10:32] VITALS: BP 120/71
[2018-07-27 12:49] VITALS: BP 148/87
[2018-07-27 19:54] VITALS: BP 141/80
[2018-07-28 04:32] VITALS: BP 150/96
[2018-07-28 05:23] LABS: CALCIUM 8.7 mg/dL (8.5-10.1); CREATININE 0.7 mg/dL (0.6-1.3)
[2018-07-28 05:48] LABS: POTASSIUM 2.8 mmol/L (3.5-5.1)
[2018-07-28 07:31] VITALS: BP 141/93
--- NOTE | 2018-07-28 08:01 | NUR ---
REPORT GIVEN TO PB, ALL QUESTIONS ANSWERED. CHART AND BELONGINGS READY FOR TRANSFER. PATIENT WILL TRANSFER WHEN ROOM IS CLEANED UPSTAIRS. PATIENT GOING TO ROOM 207 BY WHEELCHAIR.
--- NOTE | 2018-07-28 09:10 | NUR ---
PATIENT TRANSFERED TO [facility] AT THIS TIME BY WHEELCHAIR WITH NURSING STAFF. ALL BELONGINGS SENT WITH PATIENT AND CHART.
[2018-07-28 11:57] VITALS: BP 126/82
[2018-07-28 12:01] VITALS: BP 141/93
--- NOTE | 2018-07-28 12:32 | EKG ---
[place] [address] ELECTROCARDIOGRAM REPORT Name: JAMAL GUTIERREZ [place] Room: [address] ADM IN M.R.#: [id number] Admission: 07/25/18 Attend Phys: Rubi Andrews Discharge: Date of : 82 Report #: [id number] THIS REPORT FOR: //name// [facility] Test Date: 2018-07-25 Test Time: 19:40:49 Pat Name: JAMAL GUTIERREZ Department: Room: [facility] Gender: Rod Machine Operator: ALMAS : 1980 Requested By: Loy Johnson Order Number: [id number] MD: Jesus Capps Measurements Intervals [place] Rate: 91 P: 19 [place]: 157 QRS: -19 QRSD: 83 T: -69 QT: 378 QTc: 466 Interpretive Statements Sinus rhythm Left atrial enlargement Borderline left axis deviation Borderline repolarization abnormality Compared to ECG 07/25/2018 11:53:55 T-wave abnormality no longer present Possible ischemia no longer present Electronically Signed On 07-28-2018 12:31:52 CDT by Jesus Capps [email or web address] <ELECTRONICALLY SIGNED> By: Jesus Capps MD, [facility] 07/28/18 1231 39 39 Jesus Capps MD, [facility] /EPI
[2018-07-28 13:07] LABS: ANA INTERPRETATION Negative (Negative)
--- NOTE | 2018-07-28 13:12 | NUR ---
Nutrition: Pt admitted with and seen for renal failure, pancreatitis. No note of severe panc. Lipase down to 565 now, albumin 2.9. +BM yday. Pt was severely dehydrated at admit. Regular diet ordered. Will follow po intake/tolerance, labs, wt. Follow up 08/02/18.
--- NOTE | 2018-07-28 13:23 | NUR ---
PT ARRIVED TO ROOM 207 FROM ICU AT APPROX 0930. REPORT RECIEVED FROM NAVID CUENCA. PT A/O X4, DENIES PAIN, STATES HE DID NOT EAT BREAKFAST BC HE DID NOT LIKE IT. PT OFFERED ALTERNATIVES. PT STATES HE WANTS TO GO HOME TODAY. DISCHARGE ORDERS RECIEVED. PTS IJ REMOVED. PTS BELONGINGS GATHERED. PT WALKED OUT BY STAFF AND DISCHARGED WITH AT APPROX 1300
[2018-07-28 15:51] LABS: CREATININE 1.1 mg/dL (0.6-1.3)
--- NOTE | 2018-07-29 08:35 | CON ---
[address] [address] CONSULTATION Name: JAMAL GUTIERREZ [place] Room: [address] IN M.R.#: [id number] Admission: 07/25/18 Attend Phys: Rubi Andrews Discharge: 07/28/18 Date of : 82 Report #: [id number] THIS REPORT FOR: //name// CC: Loy Gunn DATE OF SERVICE: 07/26/2018 NEPHROLOGY CONSULTATION CONSULTING PHYSICIAN: Dr. Johnson. REASON FOR NEPHROLOGY CONSULTATION: Acute kidney injury. REASON FOR ADMISSION: Chest pain. HISTORY OF PRESENT ILLNESS: This is a 37-year-old male with past medical history of polysubstance abuse. He uses methamphetamine, used it last week. He uses marijuana pretty regularly. Denies any alcohol use. He came in with abdominal pain, severe neck pain. CTA of his abdomen revealed evidence of pancreatitis and his lipase was also elevated. He was also found to have acute kidney injury with a creatinine of 7.7. Baseline creatinine was 0.8 in June 2018. He takes lisinopril at home for hypertension. Denies any history of diabetes. He also takes NSAIDs, Aleve and sometimes, he takes 5-6 times a day and he states that he does not take it daily. He also has evidence of history of kidney stones and he has required ureteral stent for that and his last episode according to him was in December 2017. He lives at home with his and children. He also reported that he was working in the sun when he started feeling sick. He was started on IV fluids overnight and his creatinine is already coming down and he has made about 1700 mL of urine output overnight. In the ER, he also received a dose of Toradol. ALLERGIES: No known drug allergies. REVIEW OF SYSTEMS: As mentioned in history of present illness. He is also quite drowsy right now. Otherwise, 10-point review of systems done negative. HOME MEDICATIONS: Include loratadine, propranolol, pantoprazole, Aleve as needed, lisinopril, testosterone. PAST MEDICAL AND SURGICAL HISTORY: He is a transgender female, relates is a male, hypertension, GERD, IBS, alcohol use, kidney stones and chronic alcoholic pancreatitis. FAMILY HISTORY: He states that he hates his family. He does not know [place] [address] CONSULTATION Name: JAMAL GUTIERREZ [place] Room: [address]#: [id number] Admission: 07/25/18 Attend Phys: Rubi Andrews Discharge: 07/28/18 Date of : 82 Report #: [id number] SOCIAL HISTORY: Lives at home with his and children supposedly. He states that he has 2 children. He states that he uses marijuana pretty regularly, current every day smoker as well, and he reports not using any alcohol. Used methamphetamine last week. PHYSICAL EXAMINATION: VITAL SIGNS: Blood pressure is 126/70, pulse ox 99%, and he is on 2 liters of oxygen via nasal cannula, respiratory rate is 13, pulse rate is 108, temperature 36.6. GENERAL: He is drowsy, but easily arousable and oriented x 3. HEAD AND EYES: His face is flushed. Atraumatic, normocephalic. Eyes, normal conjunctivae. EARS, NOSE AND THROAT: Mucous membranes seem to be moist. NECK: There is no JVD. CHEST: Bilateral, clear to auscultation anteriorly. No crackles or wheezing. CARDIOVASCULAR: S1, S2 normal. No murmurs noted. ABDOMEN: Soft, nondistended, nontender on superficial examination. The patient did not want me to press deep. Bowel sounds are diminished. GENITOURINARY: He has some tenderness in his flanks. It does not seem to be CVA tenderness exactly. EXTREMITIES: Lower extremities, there is no edema. NEUROLOGICAL FUNCTION: Gross neurological functions are intact. PSYCHIATRIC: Mood and affect seem to be normal. SKIN: Warm and dry. LABORATORY DATA: Hemoglobin is 13.9. CK was 100. Creatinine was 3.1, was 7.7 on admission, CO2 was 20. Urine had 1+ protein, 3-10 rbc's per high power field, more than 25 wbc's per high power field, 10-30 bacteria, more than 10 squamous epithelial cells and other labs were reviewed. IMAGING: CTA of abdomen, pelvis and chest x-ray reviewed. ASSESSMENT: 1. Acute kidney injury in the setting of hypotension, lisinopril use, marked dehydration and also nonsteroidal anti-inflammatory drug use. Creatinine at baseline 0.8, was 7.7 on admission. UA shows evidence of 3-10 rbc's per high power field, 1+ protein, more than 25 wbc's per high power field and more than 10 squamous epithelial cells, seems to be a contaminated specimen. Should be repeated once his acute kidney injury improves. Imaging of his kidneys showed a 1.5 mm nonobstructive kidney stone on the right side, but otherwise, no hydronephrosis. He did receive IV contrast yesterday, so we will need to follow his creatinine tomorrow. 2. Abdominal pain, acute pancreatitis, getting IV fluids. Primary team is managing. 3. History of hypertension. At this time, the patient was hypotensive, now [address] [address] CONSULTATION Name: BELEMGENNYJAMAL [place] Room: [address] IN M.R.#: [id number] Admission: 07/25/18 Attend Phys: Rubi Andrews Discharge: 07/28/18 Date of : 82 Report #: [id number]. Holding the lisinopril. 4. Polysubstance abuse. U-tox is positive for opiates and methamphetamine. PLAN: 1. Continue with IV fluids, normal saline at 150 mL an hour. Avoid nephrotoxic agents including lisinopril and NSAIDs. 2. Keep his mean arterial pressure around 70. 3. Strict I's and O's. Thank you for this consultation and we will continue to follow along with you. Discussed with the patient as well as the patient's nurse. <ELECTRONICALLY SIGNED> By: Eleanor Antonio MD 07/29/18 0835 0848 [id number] Antonio MD /nt
[2018-07-29] MEDS ORDERED: HYDROCORTISO28.35 G1 TOP (23:09)
[2018-07-29] MEDS ORDERED: ZYRTEC10 M5 PO (23:09)
[2018-07-29] MEDS ORDERED: KEFLEX500 M1 PO (23:09)
== END 2018-07-28 13:26 | disposition home or self-care (01) | DRG 871 ==
LOC: M.ERS 10:22 → M.ICU 14:26 → M.TBA-ER 14:26 → M.ICU 18:52 → M.2W 07-28 09:10
PROVIDERS: Internal Medicine; Internal Medicine Nephrology; Nurse Practitioner Family; ADMIT Internal Medicine
PROC: 02HV33Z Insertion of Infusion Device into Superior Vena Cava, Percutaneous Approach (ICD-10-PCS; principal; 2018-07-25)
DX: A41.9 Sepsis, unspecified organism (principal); N17.0 Acute kidney failure with tubular necrosis; K85.91 Acute pancreatitis with uninfected necrosis, unspecified; N39.0 Urinary tract infection, site not specified; K86.0 Alcohol-induced chronic pancreatitis; R65.20 Severe sepsis without septic shock; E86.0 Dehydration; N18.9 Chronic kidney disease, unspecified; F17.210 Nicotine dependence, cigarettes, uncomplicated; M54.2 Cervicalgia; I95.9 Hypotension, unspecified; I12.9 Hypertensive chronic kidney disease with stage 1 through stage 4 chronic kidney disease, or unspecified chronic kidney disease; F15.10 Other stimulant abuse, uncomplicated; F11.10 Opioid abuse, uncomplicated; K21.9 Gastro-esophageal reflux disease without esophagitis; K58.9 Irritable bowel syndrome, unspecified; Z79.899 Other long term (current) drug therapy

== ENCOUNTER 2018-07-29 22:34 | Emergency (ER) | payer OTHER ==
[~2018-07-29] VITALS: Ht 172.7 cm; Wt 81.7 kg
[~2018-07-29 22:34] MED LIST changes: +LISINOPRIL10 MG PO; +VITAMINC500 PO
[2018-07-29] MEDS ORDERED: HYDROCORTISO28.35 G1 TOP (23:09)
[2018-07-29] MEDS ORDERED: KEFLEX500 M1 PO (23:09)
[2018-07-29] MEDS ORDERED: ZYRTEC10 M5 PO (23:09)
[2018-07-29 23:16] VITALS: BP 122/83
== END 2018-07-29 23:17 | disposition home or self-care (01) ==
LOC: M.ERS 22:34
DX: T63.301A Toxic effect of unspecified spider venom, accidental (unintentional), initial encounter (principal); Y92.89 Other specified places as the place of occurrence of the external cause; I10 Essential (primary) hypertension; K21.9 Gastro-esophageal reflux disease without esophagitis; Z90.49 Acquired absence of other specified parts of digestive tract; F17.210 Nicotine dependence, cigarettes, uncomplicated

== ENCOUNTER 2018-08-27 09:06 | Inpatient (IN) | payer OTHER ==
[2018-08-27] VITALS (19 sets, daily range): BP systolic 62–112; BP diastolic 25–73
[~2018-08-27] VITALS: Ht 165.1 cm; Wt 74.9 kg
[~2018-08-27 09:06] MED LIST changes: +HYDROCORTISO28.35 G1 TOP; +KEFLEX500 M1 PO; +ZYRTEC10 M5 PO
[2018-08-27 09:37] LABS: URINE BLOOD TRACE (Negative); URINE CLARITY SL CLOUDY; URINE COLOR DARK YELLOW; URINE GLUCOSE-RANDOM NEGATIVE (Negative); URINE KETONES NEGATIVE (Negative); URINE LEUKOCYTES-REFLEX NEGATIVE (Negative); URINE NITRITE-REFLEX NEGATIVE (Negative); URINE PROTEIN 2+ (Negative); URINE SPECIFIC GRAVITY >= 1.030 (1.005-1.030); URINE UROBILINOGEN 0.2 E.U./dl (0.2-1.0)
[2018-08-27 09:37] LABS: ABSOLUTE EOSINOPHILS 0.2 thou/uL (0.0-0.7); ABSOLUTE LYMPHOCYTES 1.1 thou/uL (0.8-5.3); ABSOLUTE MONOCYTES 0.7 thou/uL (0.0-1.2); ABSOLUTE NEUTROPHILS 9.8 thou/uL (1.6-8.1); BASOPHILS 0.3 %; EOSINOPHILS 1.5 %; HEMATOCRIT 42.9 % (42.0-52.0); HEMOGLOBIN 14.4 gm/dL (14.0-18.0); LYMPHOCYTES 9.3 %; MCH 33.7 pg (26.0-34.0); MCHC 33.7 g/dL (28.0-37.0); MCV 100.2 fL (80.0-100.0); MONOCYTES 5.7 %; MPV 8.1 fl. (7.2-11.1); NUCLEATED RBCS 0 /100WBC; PLATELET COUNT* 281 thou/uL (150-400); POLYS 83.2 %; RBC 4.29 mil/uL (4.50-6.00); RDW-CV 13.9 % (10.5-14.5); WBC 11.7 thou/uL (4.0-11.0)
[2018-08-27 09:45] LABS: AMP/METHAMP POSITIVE (Negative); BARBITURATES Negative (Negative); BENZODIAZEPINES Negative (Negative); COCAINE Negative (Negative); METHADONE Negative (Negative); OPIATES POSITIVE (Negative); PCP Negative (Negative); THC Negative (Negative)
[2018-08-27 09:46] LABS: CALCIUM 9.3 mg/dL (8.5-10.1); CREATININE 4.1 mg/dL (0.6-1.3)
[2018-08-27 09:48] LABS: ALBUMIN 3.3 g/dL (3.4-5.0); TOTAL BILIRUBIN 0.6 mg/dL (<0.1-1.0); TOTAL PROTEIN 7.9 g/dL (6.4-8.2)
[2018-08-27 09:49] LABS: URINE BILIRUBIN 1+ (Negative)
[2018-08-27 09:50] LABS: ICTOTEST (BILI CONFIRMATORY) Negative (Negative)
[2018-08-27 10:02] LABS: SQUAMOUS 4-10 Moderate /LPF (0-3)
[2018-08-27 10:03] LABS: BACTERIA-REFLEX None Seen /HPF (None Seen); HYALINE CASTS >10 Many /LPF (None Seen); MUCUS None Seen strn/LPF (None Seen); URINE RBC 0-2 Rare /HPF (0-2); URINE WBC-REFLEX None Seen /HPF (0-5)
[2018-08-27 10:04] LABS: AMORPHOUS URATES Many /LPF (None Seen)
--- NOTE | 2018-08-27 10:54 | NUR ---
CHEST X-RAY POST CENTRAL LINE HAS BEEN APPROVED BY DR. YARBROUGH FOR FLUIDS.
[2018-08-27] MEDS ORDERED: ASPIR 8181 MG PO (11:45)
--- NOTE | 2018-08-27 18:16 | NUR ---
08/27 Days: New admit. Additional 2L bolus given on arrival to unit. Levo initiated for b/p in the 70's. Able to titraite almost completely off. Patient more responsive this evening. Now waking and following commands appropriately. Up to bedside commode with standby assist. CT of abdomen completed.
[2018-08-28] VITALS (19 sets, daily range): BP systolic 98–153; BP diastolic 44–82
[2018-08-28 04:47] LABS: ABSOLUTE EOSINOPHILS 0.1 thou/uL (0.0-0.7); ABSOLUTE LYMPHOCYTES 1.4 thou/uL (0.8-5.3); ABSOLUTE MONOCYTES 0.8 thou/uL (0.0-1.2); ABSOLUTE NEUTROPHILS 7.7 thou/uL (1.6-8.1); BASOPHILS 0.5 %; EOSINOPHILS 0.6 %; HEMATOCRIT 37.2 % (42.0-52.0); LYMPHOCYTES 13.8 %; MCH 33.5 pg (26.0-34.0); MCHC 33.5 g/dL (28.0-37.0); MPV 8.6 fl. (7.2-11.1); NUCLEATED RBCS 0 /100WBC; PLATELET COUNT* 239 thou/uL (150-400); POLYS 77.1 %; RBC 3.72 mil/uL (4.50-6.00); RDW-CV 13.9 % (10.5-14.5)
[2018-08-28 04:54] LABS: CALCIUM 8.1 mg/dL (8.5-10.1); HEMOGLOBIN 12.4 gm/dL (14.0-18.0); POTASSIUM 3.3 mmol/L (3.5-5.1)
--- NOTE | 2018-08-28 05:04 | NUR ---
PT. VERY DROWSY THROUGHOUT SHIFT. AROUSABLE TO STIMULI, ORIENTED X4. C/O PAIN, FENTANYL GIVEN PER PRN ORDER. LEVOPHED GTT TURNED OFF AT 0400. PT. UP TO BSC X1 THIS SHIFT, 500CC URINE OUTPUT. REMAINS ON ROOM AIR. IVF INFUSING. WILL CONTINUE TO MONITOR.
[2018-08-28 05:12] LABS: CREATININE 1.3 mg/dL (0.6-1.3)
--- NOTE | 2018-08-28 18:16 | NUR ---
08/28: Labs improved, patient feels better overall. Tolerated jello at lunch time but had abdominal pain with jello at dinner. Will leave NPO until tomorrow morning, patient in aggreeance. Fentanly x2 for discomfort. Once for abdominal pain, other for h/a and should pain.
[2018-08-29] VITALS: BP 105/59
[2018-08-29 04:00] VITALS: BP 112/74
--- NOTE | 2018-08-29 06:41 | NUR ---
PT TRANSFERED FROM ICU AT 1935 VIA WHEELCHAIR. PT VOICED NO CONCERNS, DROWSY. IV FLUIDS INFUSING. RN CAMP IN PLACE, TRACING SR/ST THIS SHIFT. HOURLY ROUNDING COMPLETED. HIGH FALL PRECAUTIONS IN PLACE. CALL LIGHT WITHIN REACH.
[2018-08-29 07:30] VITALS: BP 126/82; BP 97/62
[2018-08-29 11:49] LABS: ABSOLUTE EOSINOPHILS 0.1 thou/uL (0.0-0.7); ABSOLUTE LYMPHOCYTES 1.1 thou/uL (0.8-5.3); ABSOLUTE MONOCYTES 0.3 thou/uL (0.0-1.2); ABSOLUTE NEUTROPHILS 4.7 thou/uL (1.6-8.1); BASOPHILS 0.2 %; EOSINOPHILS 1.2 %; HEMATOCRIT 32.2 % (42.0-52.0); HEMOGLOBIN 11.1 gm/dL (14.0-18.0); LYMPHOCYTES 17.8 %; MCH 34.1 pg (26.0-34.0); MCHC 34.4 g/dL (28.0-37.0); MCV 99.4 fL (80.0-100.0); MONOCYTES 5.2 %; MPV 7.6 fl. (7.2-11.1); NUCLEATED RBCS 0 /100WBC; PLATELET COUNT* 201 thou/uL (150-400); POLYS 75.6 %; RBC 3.24 mil/uL (4.50-6.00); RDW-CV 13.6 % (10.5-14.5); WBC 6.2 thou/uL (4.0-11.0)
[2018-08-29 12:02] LABS: ALBUMIN 2.1 g/dL (3.4-5.0); CALCIUM 8.2 mg/dL (8.5-10.1); CREATININE 0.9 mg/dL (0.6-1.3); POTASSIUM 3.3 mmol/L (3.5-5.1); TOTAL BILIRUBIN 0.4 mg/dL (<0.1-1.0); TOTAL PROTEIN 5.9 g/dL (6.4-8.2)
[2018-08-29 12:45] VITALS: BP 98/60
--- NOTE | 2018-08-29 14:12 | EKG ---
[place] [address] ELECTROCARDIOGRAM REPORT Name: JAMAL GUTIERREZ [place] Room: [address] ADM IN .R.#: [id number] Admission: 08/27/18 Attend Phys: Jose Lam MD Discharge: Date of : 82 Report #: [id number] THIS REPORT FOR: //name// [facility] Test Date: 2018-08-29 Test Time: 08:32:08 Pat Name: JAMAL GUTIERREZ Department: Room: [facility] Gender: M Professor Of Biochemistry: : 1980 Requested By: Lynn Hensley Order Number: [id number] MD: Jerald Reina Measurements Intervals [place] Rate: 95 P: 52 [place]: 147 QRS: 8 QRSD: 85 T: -80 QT: 373 QTc: 469 Interpretive Statements Sinus rhythm Borderline T abnormalities, diffuse leads Baseline wander in lead(s) V2 Compared to ECG 07/25/2018 19:40:49 no change Electronically Signed On 08-29-2018 14:11:54 CDT by Jerald Reina [email or web address] <ELECTRONICALLY SIGNED> By: Jerald Reina MD, [facility] 08/29/18 1411 0832 0832 Jerald Reina MD, [facility] /EPI
--- NOTE | 2018-08-29 15:10 | NUR ---
Pt is A&O. Resides at home with his . Active and independent. No DME. No hx of HH or SNF. Goal is home at ct. Following.
[2018-08-29 16:05] VITALS: BP 117/72
[2018-08-29 20:00] VITALS: BP 130/73
[2018-08-30] VITALS: BP 122/73
[2018-08-30 04:00] VITALS: BP 140/93
--- NOTE | 2018-08-30 05:33 | NUR ---
ASSUMED PT CARE AT 1915. SR/ST ON CIRCULAR GANG SAW OPERATOR. PT OBSERVED TO BE EXTREMELY ANXIOUS, ROCKING BACK AND FORTH WHILE SITTING IN BED, CRYING. SPOUSE AT BEDSIDE. ATTEMPTED TO COMFORT PATIENT, ATIVAN X2 GIVEN THIS SHIFT. PT TOLERATING REGULAR DIET. VOICES NO PAIN THIS SHIFT. PT ASKING ABOUT DISCHARGING HOME TODAY.
[2018-08-30 07:30] VITALS: BP 127/84
[2018-08-30 11:05] VITALS: BP 127/84
[2018-08-30] MEDS ORDERED: AUGMENTIN 875-1 EACH PO (11:05)
== END 2018-08-30 13:51 | disposition home or self-care (01) | DRG 438 ==
LOC: M.ERS 09:06 → M.ICU 10:19 → M.TBA-ER 10:19 → M.ICU 11:15 → M.2W 08-28 16:04
PROVIDERS: Personal Emergency Response Attendant; ADMIT Internal Medicine
PROC: 02HV33Z Insertion of Infusion Device into Superior Vena Cava, Percutaneous Approach (ICD-10-PCS; principal; 2018-08-27)
DX: K85.90 Acute pancreatitis without necrosis or infection, unspecified (principal); N17.0 Acute kidney failure with tubular necrosis; G93.40 Encephalopathy, unspecified; R57.9 Shock, unspecified; K86.0 Alcohol-induced chronic pancreatitis; I95.9 Hypotension, unspecified; F19.10 Other psychoactive substance abuse, uncomplicated; I10 Essential (primary) hypertension; K58.9 Irritable bowel syndrome, unspecified; K21.9 Gastro-esophageal reflux disease without esophagitis; Z90.49 Acquired absence of other specified parts of digestive tract; Z87.442 Personal history of urinary calculi; Z87.891 Personal history of nicotine dependence; Z82.49 Family history of ischemic heart disease and other diseases of the circulatory system

== ENCOUNTER 2018-09-19 06:48 | Emergency (ER) | payer OTHER ==
[~2018-09-19] VITALS: Ht 162.6 cm; Wt 70.8 kg
[~2018-09-19 06:48] MED LIST changes: +ASPIR 8181 MG PO; +AUGMENTIN 875-1 EACH PO
[2018-09-19 07:34] LABS: ABSOLUTE BASOPHILS 0.1 thou/uL (0.0-0.2); ABSOLUTE EOSINOPHILS 0.3 thou/uL (0.0-0.7); ABSOLUTE LYMPHOCYTES 1.7 thou/uL (0.8-5.3); ABSOLUTE MONOCYTES 0.7 thou/uL (0.0-1.2); ABSOLUTE NEUTROPHILS 5.9 thou/uL (1.6-8.1); BASOPHILS 0.7 %; HEMATOCRIT 33.7 % (42.0-52.0); HEMOGLOBIN 11.5 gm/dL (14.0-18.0); LYMPHOCYTES 20.3 %; MCH 33.5 pg (26.0-34.0); MCHC 34.2 g/dL (28.0-37.0); MONOCYTES 7.6 %; MPV 7.1 fl. (7.2-11.1); NUCLEATED RBCS 0 /100WBC; PLATELET COUNT* 273 thou/uL (150-400); POLYS 68.4 %; RBC 3.44 mil/uL (4.50-6.00); RDW-CV 14.3 % (10.5-14.5); WBC 8.6 thou/uL (4.0-11.0)
[2018-09-19 07:46] LABS: ANION GAP 9 mmol/L (7-16); BUN 29 mg/dL (7-18); CALCIUM 8.8 mg/dL (8.5-10.1); CHLORIDE 106 mmol/L (98-107); CO2 26 mmol/L (21-32); CREATININE 1.3 mg/dL (0.6-1.3); GLUCOSE 140 mg/dL (70-99); POTASSIUM 3.2 mmol/L (3.5-5.1); SODIUM 141 mmol/L (136-145)
[2018-09-19 07:55] LABS: ALBUMIN 2.7 g/dL (3.4-5.0); ALKALINE PHOSPHATASE 83 U/L (46-116); AMYLASE 176 U/L (25-115); LIPASE 614 U/L (73-393); SGOT 14 U/L (15-37); SGPT 19 U/L (30-65); TOTAL BILIRUBIN 0.3 mg/dL (<0.1-1.0); TOTAL PROTEIN 6.2 g/dL (6.4-8.2); TROPONIN-I LEVEL <0.06 ng/mL (<0.06)
[2018-09-19 08:09] LABS: URINE BILIRUBIN NEGATIVE (Negative); URINE BLOOD NEGATIVE (Negative); URINE CLARITY CLEAR; URINE COLOR YELLOW; URINE GLUCOSE-RANDOM NEGATIVE (Negative); URINE KETONES NEGATIVE (Negative); URINE LEUKOCYTES-REFLEX NEGATIVE (Negative); URINE NITRITE-REFLEX NEGATIVE (Negative); URINE PROTEIN 1+ (Negative); URINE SPECIFIC GRAVITY 1.025 (1.005-1.030); URINE UROBILINOGEN 0.2 E.U./dl (0.2-1.0)
[2018-09-19 08:22] LABS: AMP/METHAMP POSITIVE (Negative); BARBITURATES Negative (Negative); BENZODIAZEPINES Negative (Negative); COCAINE Negative (Negative); METHADONE Negative (Negative); OPIATES POSITIVE (Negative); PCP Negative (Negative); THC Negative (Negative)
--- NOTE | 2018-09-19 09:21 | EKG ---
[place] [address] ELECTROCARDIOGRAM REPORT Name: JAMAL GUTIERREZ [place] Room: [facility]#: [id number] Admission: 09/19/18 Attend Phys: Discharge: Date of : 82 Report #: [id number] THIS REPORT FOR: //name// [facility] ED Test Date: 2018-09-19 Test Time: 06:53:54 Pat Name: JAMAL GUTIERREZ Department: Room: Gender: M Product Transfer Pumper: : 1980 Requested By: Raffaele Mcgill Order Number: [id number] MD: Jerald Reina Measurements Intervals [place] Rate: 107 P: 37 [place]: 130 QRS: 13 QRSD: 100 T: 42 QT: 354 QTc: 473 Interpretive Statements Sinus tachycardia Probable left atrial enlargement Artifact in lead(s) V4,V5,V6 Compared to ECG 08/29/2018 08:32:08 Sinus rhythm no longer present T-wave abnormality no longer present Electronically Signed On 09-19-2018 9:21:01 CDT by Jerald Reina [email or web address] <ELECTRONICALLY SIGNED> By: Jerald Reina MD, [facility] 09/19/1821 0653 0653 Jerald Reina MD, [facility] /EPI
[2018-09-19] MEDS ORDERED: ZOFRAN ODT4 MG DISSOLVE (10:22)
[2018-09-19] MEDS ORDERED: NORCO 5-325 TA1 EAC1 PO (10:22)
[2018-09-19 10:39] VITALS: BP 146/100
== END 2018-09-19 10:40 | disposition left against medical advice (07) ==
LOC: M.ERS 06:48
PROVIDERS: Emergency Medicine
DX: K85.90 Acute pancreatitis without necrosis or infection, unspecified (principal); R07.89 Other chest pain; F17.210 Nicotine dependence, cigarettes, uncomplicated; I10 Essential (primary) hypertension; K58.9 Irritable bowel syndrome, unspecified; K21.9 Gastro-esophageal reflux disease without esophagitis; Z87.442 Personal history of urinary calculi; Z90.49 Acquired absence of other specified parts of digestive tract

== ENCOUNTER 2019-01-18 04:41 | Inpatient (IN) | payer OTHER ==
[~2019-01-18] VITALS: Ht 165.1 cm; Wt 68.5 kg
[~2019-01-18 04:41] MED LIST changes: +NORCO 5-325 TA1 EAC1 PO
[2019-01-18 04:48] VITALS: BP 114/75
[2019-01-18] MEDS ORDERED: METFORMIN HCL500 M3 PO (04:56)
[2019-01-18 05:06] LABS: ABSOLUTE EOSINOPHILS 0.2 thou/uL (0.0-0.7); ABSOLUTE LYMPHOCYTES 1.7 thou/uL (0.8-5.3); ABSOLUTE MONOCYTES 0.5 thou/uL (0.0-1.2); ABSOLUTE NEUTROPHILS 5.8 thou/uL (1.6-8.1); BASOPHILS 0.6 %; EOSINOPHILS 1.9 %; HEMATOCRIT 28.7 % (42.0-52.0); HEMOGLOBIN 8.7 gm/dL (14.0-18.0); LYMPHOCYTES 20.9 %; MCH 23.1 pg (26.0-34.0); MCHC 30.4 g/dL (28.0-37.0); MCV 75.8 fL (80.0-100.0); MONOCYTES 5.5 %; MPV 7.1 fl. (7.2-11.1); NUCLEATED RBCS 0 /100WBC; PLATELET COUNT* 709 thou/uL (150-400); POLYS 71.1 %; RBC 3.79 mil/uL (4.50-6.00); RDW-CV 18.1 % (10.5-14.5); WBC 8.2 thou/uL (4.0-11.0)
[2019-01-18 05:27] LABS: PROTIME 9.9 Seconds (9.20-11.50)
[2019-01-18 05:31] LABS: CALCIUM 9.9 mg/dL (8.5-10.1); CREATININE 1.5 mg/dL (0.6-1.3)
[2019-01-18 05:42] LABS: ALBUMIN 3.6 g/dL (3.4-5.0); TOTAL BILIRUBIN 0.2 mg/dL (<0.1-1.0); TOTAL PROTEIN 8.5 g/dL (6.4-8.2)
[2019-01-18 06:42] VITALS: BP 110/65
[2019-01-18 06:45] VITALS: BP 96/50
[2019-01-18 08:00] VITALS: BP 95/47
[2019-01-18 10:56] LABS: URINE BILIRUBIN NEGATIVE (Negative); URINE BLOOD 1+ (Negative); URINE CLARITY CLEAR; URINE COLOR YELLOW; URINE GLUCOSE-RANDOM 3+ (Negative); URINE KETONES NEGATIVE (Negative); URINE LEUKOCYTES-REFLEX NEGATIVE (Negative); URINE NITRITE-REFLEX NEGATIVE (Negative); URINE PROTEIN NEGATIVE (Negative); URINE UROBILINOGEN 0.2 E.U./dl (0.2-1.0)
[2019-01-18 11:01] LABS: AMP/METHAMP POSITIVE (Negative); BARBITURATES Negative (Negative); BENZODIAZEPINES Negative (Negative); COCAINE Negative (Negative); METHADONE Negative (Negative); OPIATES POSITIVE (Negative); PCP Negative (Negative); THC Negative (Negative)
[2019-01-18 11:06] LABS: SQUAMOUS 0-3 Few /LPF (0-3)
[2019-01-18 11:07] LABS: URINE WBC-REFLEX 0-5 Rare /HPF (0-5)
[2019-01-18 11:08] LABS: URINE RBC 0-2 Rare /HPF (0-2)
[2019-01-18 11:12] LABS: BACTERIA-REFLEX 1-9 Few /HPF (None Seen)
[2019-01-18 11:13] LABS: CASTS None Seen /LPF (None Seen); CRYSTALS None Seen /LPF (None Seen)
[2019-01-18 12:00] VITALS: BP 84/38
[2019-01-18 16:00] VITALS: BP 97/51
--- NOTE | 2019-01-19 15:09 | EKG ---
[place] [address] ELECTROCARDIOGRAM REPORT Name: JAMAL GUTIERREZ [place] Room: [address] DIS IN M.R.#: [id number] Admission: 01/18/19 Attend Phys: Manfred Lan Discharge: 01/18/19 Date of : 82 Report #: [id number] THIS REPORT FOR: //name// [facility] ED Test Date: 2019-01-18 Test Time: 04:50:16 Pat Name: JAMAL GUTIERREZ Department: Room: [facility] Gender: M Clothing Pattern Preparer: fara : 1980 Requested By: Lynn Hensley Order Number: [id number] MD: Jerald Reina Measurements Intervals [place] Rate: 100 P: 22 [place]: 135 QRS: 5 QRSD: 80 T: 13 QT: 344 QTc: 444 Interpretive Statements Sinus tachycardia Probable left atrial enlargement Baseline wander in lead(s) V2 Compared to ECG 09/19/2018 06:53:54 No significant changes Electronically Signed On 01-19-2019 15:08:47 CHICKEN FANCIER by Jerald Reina [email or web address] <ELECTRONICALLY SIGNED> By: Jerald Reina MD, FACC 01/19/19 1508 0450 0450 Jerald Reina MD, [facility] /EPI
== END 2019-01-18 19:54 | disposition left against medical advice (07) | DRG 438 ==
LOC: M.ERS 04:41 → M.TBA-ER 05:49 → M.2W 07:20
PROVIDERS: Family Medicine; Personal Emergency Response Attendant; ADMIT Internal Medicine
DX: K85.20 Alcohol induced acute pancreatitis without necrosis or infection (principal); I81 Portal vein thrombosis; N17.9 Acute kidney failure, unspecified; K86.0 Alcohol-induced chronic pancreatitis; K86.3 Pseudocyst of pancreas; I10 Essential (primary) hypertension; K21.9 Gastro-esophageal reflux disease without esophagitis; Z53.29 Procedure and treatment not carried out because of patient's decision for other reasons; K58.9 Irritable bowel syndrome, unspecified; F17.210 Nicotine dependence, cigarettes, uncomplicated; D63.8 Anemia in other chronic diseases classified elsewhere; E11.65 Type 2 diabetes mellitus with hyperglycemia; R07.89 Other chest pain; Z90.49 Acquired absence of other specified parts of digestive tract

== ENCOUNTER 2019-01-19 17:25 | Inpatient (IN) | payer OTHER ==
[~2019-01-19] VITALS: Ht 165.1 cm; Wt 73.1 kg
[~2019-01-19 17:25] MED LIST changes: +METFORMIN HCL500 M3 PO
[2019-01-19 17:39] VITALS: BP 135/79
[2019-01-19 18:25] LABS: ABSOLUTE BASOPHILS 0.1 thou/uL (0.0-0.2); ABSOLUTE EOSINOPHILS 0.1 thou/uL (0.0-0.7); ABSOLUTE LYMPHOCYTES 1.7 thou/uL (0.8-5.3); ABSOLUTE MONOCYTES 0.7 thou/uL (0.0-1.2); ABSOLUTE NEUTROPHILS 7.2 thou/uL (1.6-8.1); BASOPHILS 0.6 %; EOSINOPHILS 1.5 %; HEMATOCRIT 27.6 % (42.0-52.0); HEMOGLOBIN 8.6 gm/dL (14.0-18.0); LYMPHOCYTES 17.2 %; MCH 23.6 pg (26.0-34.0); MCHC 31.1 g/dL (28.0-37.0); MCV 75.8 fL (80.0-100.0); MONOCYTES 7.6 %; MPV 7.3 fl. (7.2-11.1); NUCLEATED RBCS 0 /100WBC; PLATELET COUNT* 673 thou/uL (150-400); POLYS 73.1 %; RBC 3.64 mil/uL (4.50-6.00); RDW-CV 18.1 % (10.5-14.5); WBC 9.9 thou/uL (4.0-11.0)
[2019-01-19 18:49] LABS: CALCIUM 10.1 mg/dL (8.5-10.1); CREATININE 1.4 mg/dL (0.6-1.3); POTASSIUM 4.1 mmol/L (3.5-5.1)
[2019-01-19 18:53] LABS: ALBUMIN 3.5 g/dL (3.4-5.0); TOTAL BILIRUBIN 0.2 mg/dL (<0.1-1.0); TOTAL PROTEIN 8.5 g/dL (6.4-8.2)
[2019-01-19 20:26] VITALS: BP 107/56
[2019-01-19 20:50] LABS: URINE BILIRUBIN NEGATIVE (Negative); URINE BLOOD NEGATIVE (Negative); URINE CLARITY CLEAR; URINE COLOR YELLOW; URINE GLUCOSE-RANDOM 3+ (Negative); URINE KETONES NEGATIVE (Negative); URINE LEUKOCYTES-REFLEX NEGATIVE (Negative); URINE NITRITE-REFLEX NEGATIVE (Negative); URINE PROTEIN NEGATIVE (Negative); URINE UROBILINOGEN 0.2 E.U./dl (0.2-1.0)
[2019-01-19 20:57] LABS: AMP/METHAMP POSITIVE (Negative); BARBITURATES Negative (Negative); BENZODIAZEPINES Negative (Negative); COCAINE Negative (Negative); METHADONE Negative (Negative); OPIATES POSITIVE (Negative); PCP Negative (Negative); THC Negative (Negative)
[2019-01-19 21:00] VITALS: BP 112/68
[2019-01-20] VITALS: BP 120/64
[2019-01-20 04:00] VITALS: BP 112/54
[2019-01-20 08:00] VITALS: BP 104/56
--- NOTE | 2019-01-20 11:03 | EKG ---
[place] [address] ELECTROCARDIOGRAM REPORT Name: JAMAL GUTIERREZ Room: [address] ADM IN M.R.#: [id number] Admission: 01/19/19 Attend Phys: Temo Villatoro Discharge: Date of : 82 Report #: [id number] THIS REPORT FOR: //name// [facility] ED Test Date: 2019-01-19 Test Time: 17:52:01 Pat Name: JAMAL GUTIERREZ Department: Room: [facility] Gender: M Clinical Genetics Laboratory Chief: : 1980 Requested By: Gala Selby Order Number: [id number] MD: Elder Day Measurements Intervals [place] Rate: 89 P: 33 [place]: 155 QRS: 21 QRSD: 86 T: 30 QT: 381 QTc: 464 Interpretive Statements Sinus rhythm Baseline wander in lead(s) V1,V2,V6 Compared to ECG 01/18/2019 04:50:16 Sinus tachycardia no longer present Electronically Signed On 01-20-2019 11:02:58 FIRE SPRINKLER DESIGNER by Elder Day [email or web address] <ELECTRONICALLY SIGNED> By: Elder Day MD, FACC 01/20/19 1102 175 175 Elder Day MD, FACC /EPI
[2019-01-20 13:01] VITALS: BP 93/54
[2019-01-20 16:36] VITALS: BP 116/77
[2019-01-20 20:00] VITALS: BP 120/82
[2019-01-21] VITALS: BP 129/67
[2019-01-21 04:00] VITALS: BP 109/67
[2019-01-21 07:43] VITALS: BP 108/64
[2019-01-21 11:20] VITALS: BP 130/88
[2019-01-21 14:10] LABS: ABSOLUTE EOSINOPHILS 0.1 thou/uL (0.0-0.7); ABSOLUTE LYMPHOCYTES 1.9 thou/uL (0.8-5.3); ABSOLUTE MONOCYTES 0.3 thou/uL (0.0-1.2); ABSOLUTE NEUTROPHILS 2.6 thou/uL (1.6-8.1); BASOPHILS 0.6 %; EOSINOPHILS 2.2 %; HEMATOCRIT 23.2 % (42.0-52.0); HEMOGLOBIN 7.1 gm/dL (14.0-18.0); LYMPHOCYTES 38.2 %; MCH 23.3 pg (26.0-34.0); MCHC 30.5 g/dL (28.0-37.0); MCV 76.4 fL (80.0-100.0); MONOCYTES 5.3 %; MPV 6.9 fl. (7.2-11.1); NUCLEATED RBCS 0 /100WBC; POLYS 53.7 %; RBC 3.04 mil/uL (4.50-6.00); RDW-CV 17.5 % (10.5-14.5); WBC 4.9 thou/uL (4.0-11.0)
[2019-01-21 14:14] LABS: PLATELET COUNT* 425 thou/uL (150-400)
[2019-01-21 16:00] VITALS: BP 122/68
[2019-01-21 20:00] VITALS: BP 130/85
[2019-01-22] VITALS: BP 154/90
[2019-01-22 04:00] VITALS: BP 134/70
[2019-01-22 07:35] VITALS: BP 135/93
[2019-01-22 11:15] VITALS: BP 145/92
--- NOTE | 2019-01-22 11:57 | CON ---
[address] [address] CONSULTATION Name: JAMAL GUTIERREZ Room: [address] IN M.R.#: [id number] Admission: 01/19/19 Attend Phys: Temo Villatoro Discharge: 01/22/19 Date of : 82 Report #: [id number] THIS REPORT FOR: //name// CC: [facility] physician/PCP Temo Covarrubias DATE OF SERVICE: 01/21/2019 INFECTIOUS DISEASE CONSULTATION ATTENDING PHYSICIAN: Dr. Loy Johnson. REASON FOR EVALUATION: Pancreatic phlegmon, question complicated by infection. HISTORY OF PRESENT ILLNESS: Chart reviewed, patient examined. This is a 38-year-old young man with known history of chronic pancreatitis, who had been generally doing fairly well; however, required hospitalization due to increasing pain, was found to have a phlegmon, thus underwent percutaneous drainage. Drain was removed prior to his discharge from [facility]. He was readmitted again with similar complaints of pain. It is not clear if he was systemically ill. Denies any pulmonary or gastrointestinal-related complaints. Appetite generally has been good recently. He does not have significant discomfort at this point. Evaluation noted normal white count. Imaging did confirm considerable inflammation in the left upper abdomen. Suspect pancreatic tail issue, chronic left subphrenic inflammatory changes, small pancreatic fluid collections suggesting pseudocysts, portal vein thrombosis with flow. Had not received antibiotics during the course of the hospitalization. Is on clear liquids at this point. ALLERGIES: None known. MEDICATIONS: Include famotidine, lorazepam, p.r.n. analgesics including morphine, p.r.n. antiemetics with ondansetron. PAST MEDICAL HISTORY: Chronic pancreatitis, history of ethanol excess, although quit up to a year ago. He is transgender and identifies as male, IBS, kidney stones, cholecystectomy, appendectomy, severe acid reflux, only has diabetes, relatively new diagnosis. SOCIAL HISTORY: Smokes a pack a day for the last 15 years, cigarettes, takes drugs including amphetamine, methamphetamine. FAMILY HISTORY: Noncontributory. REVIEW OF SYSTEMS: Otherwise, unremarkable 10-point [place] [address] CONSULTATION Name: JAMAL GUTIERREZ Room: [address]#: [id number] Admission: 01/19/19 Attend Phys: Temo Villatoro Discharge: 01/22/19 Date of : 82 Report #: [id number] PHYSICAL EXAMINATION: GENERAL: He is alert, cooperative, appropriate, ____ dressed. He is not overtly distressed, appears to be reasonable, well nourished. VITAL SIGNS: Temperature 98.8, pulse 96, respirations 16, blood pressure 130/88. SKIN: Warm, dry, no rashes. HEENT: Normocephalic. Extraocular muscles intact. NECK: Supple. LUNGS: Generally clear to auscultation. HEART: Regular. Borderline tachycardic. I do not appreciate a murmur. ABDOMEN: Soft. No overt peritoneal signs, perhaps slightly tender. GENITOURINARY: Deferred. RECTAL: Deferred. LABORATORY DATA: White count 4.9, H and H 7.1 and 23.2, platelets of 425 ____ from 673. Differential unremarkable. Lipase is elevated at 791. Blood cultures sterile thus far. Positive drug screen for amphetamine, methamphetamine as well as opiates. Urinalysis unremarkable. ASSESSMENT AND PLAN: Chronic pancreatitis, presents with acute flare. Does have imaging evidence of pancreatic pseudocyst. I think based on the clinical picture, additional information related to laboratory studies, there is no clear evidence of any infection. Seemingly his signs and symptoms have improved in spite of lack of antibiotics at this point. We will continue to monitor off in the event that he would have any deterioration from the drainage and perhaps culture at the site. He noted there may have been cultures from [facility], although he was not discharged on any treatment. We will try to obtain those records. I did discuss with Dr. Johnosn. He agrees with current approach. <ELECTRONICALLY SIGNED> By: Alfredo Bryan MD 01/22/19 [id number] Bryan MD /nt
== END 2019-01-22 11:35 | disposition left against medical advice (07) | DRG 438 ==
LOC: M.ERS 17:25 → M.2W 19:20 → M.TBA-ER 19:20 → M.2W 20:48
PROVIDERS: Internal Medicine; Nurse Practitioner Family; ADMIT Family Medicine
DX: K85.90 Acute pancreatitis without necrosis or infection, unspecified (principal); I81 Portal vein thrombosis; K76.6 Portal hypertension; N17.9 Acute kidney failure, unspecified; K86.1 Other chronic pancreatitis; K21.9 Gastro-esophageal reflux disease without esophagitis; E11.65 Type 2 diabetes mellitus with hyperglycemia; F17.210 Nicotine dependence, cigarettes, uncomplicated; F19.10 Other psychoactive substance abuse, uncomplicated; F10.20 Alcohol dependence, uncomplicated; Z87.442 Personal history of urinary calculi; Z90.49 Acquired absence of other specified parts of digestive tract; Z86.718 Personal history of other venous thrombosis and embolism; Z53.29 Procedure and treatment not carried out because of patient's decision for other reasons

== ENCOUNTER 2019-03-11 22:12 | Emergency (ER) | payer OTHER ==
[~2019-03-11] VITALS: Ht 165.1 cm; Wt 72.6 kg
[2019-03-11] MEDS ORDERED: HUMALOG100 UNIT/1 SUBQ (22:18)
[2019-03-11] MEDS ORDERED: LANTUS SOL100 UNIT/1 SUBQ (22:19)
[2019-03-11] MEDS ORDERED: KEFLEX500 M1 PO (22:29)
[2019-03-11 22:39] VITALS: BP 154/111
== END 2019-03-11 22:38 | disposition home or self-care (01) ==
LOC: M.ERS 22:12
DX: I80.8 Phlebitis and thrombophlebitis of other sites (principal); K58.9 Irritable bowel syndrome, unspecified; F17.210 Nicotine dependence, cigarettes, uncomplicated; Z90.49 Acquired absence of other specified parts of digestive tract; Z87.442 Personal history of urinary calculi

== ENCOUNTER 2020-03-03 12:03 | Emergency (ER) | payer OTHER, MEDICAID ==
[~2020-03-03] VITALS: Ht 165.1 cm; Wt 77.9 kg
[~2020-03-03 12:03] MED LIST changes: +HUMALOG100 UNIT/1 SUBQ; +LANTUS SOL100 UNIT/1 SUBQ
[2020-03-03] MEDS ORDERED: BENTYL 10 MG CA10 MG PO (12:15)
[2020-03-03] MEDS ORDERED: [UNRECOGNIZED DRUG - CODE] (12:15)
[2020-03-03 12:24] LABS: URINE BILIRUBIN NEGATIVE (Negative); URINE BLOOD NEGATIVE (Negative); URINE CLARITY CLEAR; URINE COLOR YELLOW; URINE GLUCOSE-RANDOM 1+ (Negative); URINE KETONES NEGATIVE (Negative); URINE LEUKOCYTES-REFLEX NEGATIVE (Negative); URINE NITRITE-REFLEX NEGATIVE (Negative); URINE PROTEIN TRACE (Negative); URINE UROBILINOGEN 0.2 E.U./dl (0.2-1.0)
[2020-03-03 12:36] LABS: ABSOLUTE BASOPHILS 0.1 thou/uL (0.0-0.2); ABSOLUTE LYMPHOCYTES 1.4 thou/uL (0.8-5.3); ABSOLUTE MONOCYTES 0.9 thou/uL (0.0-1.2); ABSOLUTE NEUTROPHILS 12.1 thou/uL (1.6-8.1); BASOPHILS 0.7 %; EOSINOPHILS 0.2 %; HEMATOCRIT 31.1 % (42.0-52.0); HEMOGLOBIN 9.6 gm/dL (14.0-18.0); LYMPHOCYTES 9.8 %; MCHC 30.9 g/dL (28.0-37.0); MCV 71.4 fL (80.0-100.0); MONOCYTES 5.9 %; MPV 6.8 fl. (7.2-11.1); NUCLEATED RBCS 0 /100WBC; PLATELET COUNT* 558 thou/uL (150-400); POLYS 83.4 %; RBC 4.35 mil/uL (4.50-6.00); WBC 14.5 thou/uL (4.0-11.0)
[2020-03-03 12:44] LABS: CALCIUM 9.6 mg/dL (8.5-10.1); CREATININE 1.7 mg/dL (0.6-1.3); POTASSIUM 4.1 mmol/L (3.5-5.1)
[2020-03-03 12:48] LABS: ALBUMIN 3.1 g/dL (3.4-5.0); TOTAL BILIRUBIN 0.4 mg/dL (<0.1-1.0); TOTAL PROTEIN 7.9 g/dL (6.4-8.2)
[2020-03-03 13:11] LABS: HYPOCHROMASIA 2+; MICROCYTES 2+; PLATELET ESTIMATE INCREASED
[2020-03-03 13:12] LABS: TARGET CELLS Occasional
[2020-03-03] MEDS ORDERED: NORCO 10-325 T1 EACH PO (17:01)
[2020-03-03 17:50] VITALS: BP 127/67
== END 2020-03-03 17:50 | disposition short-term general hospital (02) ==
LOC: M.ERS 12:03
PROVIDERS: Physician Assistant
DX: R10.32 Left lower quadrant pain (principal); Z20.828 Contact with and (suspected) exposure to other viral communicable diseases; K58.9 Irritable bowel syndrome, unspecified; E11.9 Type 2 diabetes mellitus without complications; Z87.442 Personal history of urinary calculi; Z90.49 Acquired absence of other specified parts of digestive tract

== ENCOUNTER 2020-03-18 10:18 | Emergency (ER) | payer OTHER, MEDICAID ==
[~2020-03-18] VITALS: Ht 165.1 cm; Wt 81.7 kg
[~2020-03-18 10:18] MED LIST changes: +BENTYL 10 MG CA10 MG PO; +NORCO 10-325 T1 EACH PO; +[UNRECOGNIZED DRUG - CODE]
[2020-03-18] MEDS ORDERED: ASPIR-TRIN325 MG PO (10:28)
[2020-03-18 12:09] LABS: CREATININE 0.9 mg/dL (0.6-1.3)
[2020-03-18 12:12] LABS: HEMATOCRIT 30.6 % (42.0-52.0); HEMOGLOBIN 8.9 gm/dL (14.0-18.0); MCH 20.6 pg (26.0-34.0); MCHC 28.9 g/dL (28.0-37.0); MCV 71.1 fL (80.0-100.0); MPV 7.8 fl. (7.2-11.1); NUCLEATED RBCS 0 /100WBC; PLATELET COUNT* 691 thou/uL (150-400); RBC 4.31 mil/uL (4.50-6.00); RDW-CV 20.2 % (10.5-14.5); WBC 21.1 thou/uL (4.0-11.0)
[2020-03-18 12:14] LABS: ALBUMIN 2.8 g/dL (3.4-5.0); DIRECT BILIRUBIN 0.1 mg/dL (<0.1-0.3); TOTAL BILIRUBIN 0.4 mg/dL (<0.1-1.0); TOTAL PROTEIN 7.7 g/dL (6.4-8.2)
[2020-03-18 12:42] LABS: ABSOLUTE LYMPHOCYTES 2.5 thou/uL (0.8-5.3); ABSOLUTE MONOCYTES 0.6 thou/uL (0.0-1.2); ABSOLUTE NEUTROPHILS 17.9 thou/uL (1.6-8.1); HYPOCHROMASIA 2+; MICROCYTES 2+; PLATELET ESTIMATE INCREASED
[2020-03-18 12:43] LABS: ANISOCYTOSIS 2+; POLYCHROMASIA Occasional
[2020-03-18 12:44] LABS: POIKILOCYTOSIS 1+
[2020-03-18 20:05] VITALS: BP 120/84
== END 2020-03-18 20:05 | disposition short-term general hospital (02) ==
LOC: M.ERS 10:18
PROVIDERS: Emergency Medicine
DX: T81.40XA Infection following a procedure, unspecified, initial encounter (principal); R10.11 Right upper quadrant pain; R10.12 Left upper quadrant pain; D72.829 Elevated white blood cell count, unspecified; Z20.828 Contact with and (suspected) exposure to other viral communicable diseases; K58.9 Irritable bowel syndrome, unspecified; K21.9 Gastro-esophageal reflux disease without esophagitis; Z87.442 Personal history of urinary calculi; Z90.49 Acquired absence of other specified parts of digestive tract; Y83.8 Other surgical procedures as the cause of abnormal reaction of the patient, or of later complication, without mention of misadventure at the time of the procedure; Y92.89 Other specified places as the place of occurrence of the external cause

== ENCOUNTER → 2020-04-05 | Outpatient (CLI) | payer OTHER, MEDICAID ==
[~2020-04-05] MED LIST changes: +ASPIR-TRIN325 MG PO
== END ==
LOC: M.CT 04-04 11:00
DX: K86.3 Pseudocyst of pancreas (principal)

== ENCOUNTER 2020-07-05 23:24 | Emergency (ER) | payer OTHER, MEDICAID ==
[~2020-07-05] VITALS: Ht 167.6 cm; Wt 81.7 kg
[2020-07-05] MEDS ORDERED: METFORMIN HCL500 M3 PO (23:35)
[2020-07-05] MEDS ORDERED: AMITRIPTYLINE H25 M2 PO (23:36)
[2020-07-05] MEDS ORDERED: LYRICA 75 MG CA75 MG PO (23:36)
[2020-07-05 23:44] LABS: URINE BILIRUBIN NEGATIVE (Negative); URINE BLOOD NEGATIVE (Negative); URINE CLARITY CLEAR; URINE COLOR YELLOW; URINE GLUCOSE-RANDOM 2+ (Negative); URINE KETONES NEGATIVE (Negative); URINE LEUKOCYTES-REFLEX NEGATIVE (Negative); URINE NITRITE-REFLEX NEGATIVE (Negative); URINE PROTEIN TRACE (Negative); URINE SPECIFIC GRAVITY 1.025 (1.005-1.030); URINE UROBILINOGEN 0.2 E.U./dl (0.2-1.0)
[2020-07-05 23:51] LABS: AMP/METHAMP POSITIVE (Negative); BARBITURATES Negative (Negative); BENZODIAZEPINES Negative (Negative); COCAINE Negative (Negative); METHADONE Negative (Negative); OPIATES Negative (Negative); PCP Negative (Negative); THC Negative (Negative)
[2020-07-05 23:58] LABS: HEMATOCRIT 50.6 % (42.0-52.0); HEMOGLOBIN 15.9 gm/dL (14.0-18.0); MCH 25.3 pg (26.0-34.0); MCHC 31.5 g/dL (28.0-37.0); MCV 80.4 fL (80.0-100.0); MPV 8.2 fl. (7.2-11.1); NUCLEATED RBCS 0 /100WBC; PLATELET COUNT* 355 thou/uL (150-400); RBC 6.29 mil/uL (4.50-6.00); RDW-CV 28.1 % (10.5-14.5); WBC 8.2 thou/uL (4.0-11.0)
[2020-07-06 00:02] LABS: CALCIUM 9.6 mg/dL (8.5-10.1); CREATININE 1.3 mg/dL (0.6-1.3); POTASSIUM 3.8 mmol/L (3.5-5.1)
[2020-07-06 00:07] LABS: ALBUMIN 3.8 g/dL (3.4-5.0); TOTAL BILIRUBIN 0.2 mg/dL (<0.1-1.0); TOTAL PROTEIN 8.3 g/dL (6.4-8.2)
[2020-07-06 00:34] LABS: ABSOLUTE BASOPHILS 0.2 thou/uL (0.0-0.2); ABSOLUTE EOSINOPHILS 0.2 thou/uL (0.0-0.7); ABSOLUTE LYMPHOCYTES 2.9 thou/uL (0.8-5.3); ABSOLUTE MONOCYTES 0.4 thou/uL (0.0-1.2); ABSOLUTE NEUTROPHILS 4.5 thou/uL (1.6-8.1)
[2020-07-06 00:36] LABS: ANISOCYTOSIS 3+; LARGE PLATELETS OCCASIONAL; PLATELET ESTIMATE ADEQUATE; POLYCHROMASIA 1+
[2020-07-06 00:37] LABS: OVALOCYTES Occasional
[2020-07-06] MEDS ORDERED: HYDROCODON-ACE1 EAC8 PO ×2 (02:25→03:11)
[2020-07-06 03:08] VITALS: BP 143/78
== END 2020-07-06 03:08 | disposition home or self-care (01) ==
LOC: M.ERS 23:24
PROVIDERS: Emergency Medicine
DX: K86.1 Other chronic pancreatitis (principal); R11.2 Nausea with vomiting, unspecified; R10.13 Epigastric pain; F17.210 Nicotine dependence, cigarettes, uncomplicated; Z79.899 Other long term (current) drug therapy; Z79.82 Long term (current) use of aspirin; Z87.442 Personal history of urinary calculi; Z90.49 Acquired absence of other specified parts of digestive tract

== ENCOUNTER 2021-02-13 14:52 | Emergency (ER) | payer OTHER, MEDICAID ==
[~2021-02-13] VITALS: Ht 165.1 cm; Wt 81.7 kg
[~2021-02-13 14:52] MED LIST changes: +AMITRIPTYLINE H25 M2 PO; +HYDROCODON-ACE1 EAC8 PO; +LYRICA 75 MG CA75 MG PO
[2021-02-13] MEDS ORDERED: FLONASE 0.05%50 MCG NARES (15:00)
[2021-02-13] MEDS ORDERED: SYMBICORT160 MCG/4. INH (15:00)
[2021-02-13] MEDS ORDERED: PROAIR HFA8.5 GM INH (15:00)
[2021-02-13] MEDS ORDERED: VENTOLIN HFA 1818 GM INH (15:39)
[2021-02-13] MEDS ORDERED: MEDROLDOSEPACK PO (15:39)
[2021-02-13] MEDS ORDERED: ZPAK PO (15:39)
[2021-02-13 15:44] VITALS: BP 130/83
== END 2021-02-13 15:44 | disposition home or self-care (01) ==
LOC: M.ERS 14:52
DX: J98.8 Other specified respiratory disorders (principal); Z20.822 Contact with and (suspected) exposure to COVID-19; K21.9 Gastro-esophageal reflux disease without esophagitis; F17.210 Nicotine dependence, cigarettes, uncomplicated; Z90.49 Acquired absence of other specified parts of digestive tract; Z79.899 Other long term (current) drug therapy